=== PATIENT | female | born 2005 | race Caucasian/White ===

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

== ENCOUNTER 2024-08-09 22:25 | Emergency (ER) | payer BC, SELFPAY ==
--- OUTSIDE RECORDS SUMMARY | 2024-08-09 22:27 | XMS_ITS | Referral Summary ---
Author Organization [facility] [employer] Address [address] [place] [address] Care Team Providers Care Ship[employer] Electronic War[employer] Officer Name Role Phone Gwen Sofia MD Primary Care Provider [phone] Source Comments [facility] [employer]non-owned Affiliates and Associated Physician Practices is amultiple site organization consisting of ambulatory clinics and hospital sitesin [place], [place], [place] and [place]. This disclosure is being madepursuant to the Care Everywhere program and may not contain all information available regarding this patient. Last updated 18.[facility] [employer] Allergies No known active allergies Medications * Be aware that medications may not be up to date on this document. Alwaysverify current medications with the patient. Medication Sig Dispensed Refills Start Date End Date Status Methylphenidate HCl (METHYLPHENIDATE CR) 36 MG tablet Take 1 tablet by mouth once daily 11/07/2018 Active ibuprofen (MOTRIN) 600 MG tablet Take 1 (one) tablet by mouth every 8 hours as needed for Pain 20 tablet 03/06/2021 Active acetaminophen (TYLENOL) 325 MG tablet Take 2 (two) tablets by mouth every 6 hours as needed for Fever or Pain Maximum allowable Acetaminophen amount = 4 Grams (4000 mg) / 24 hours. 20 tablet 03/06/2021 Active Active Problems Problem Noted Date Diagnosed Date Vocal cord dysfunction 08/06/2019 Assessment & Plan (08/06/2019 1:56 PM [facility]): Assessment: Symptoms likely represent vocal cord dysfunction. The normal chest exam, normal PFT's, and description of dyspnea makes asthma much less likely. No evidence for underlying airway lesion such as a papilloma or hemangioma. Recommendation: Speech therapy referral for evaluation and training in the techniques of resistive breathing to improve these episodes and to address paradoxic vocal cord motion. I have reviewed the physiology of the larynx as it pertains to VCD, and the paradoxic motion of the vocal cords typical of this entity. If symptoms persist despite speech therapy intervention, would plan to see in follow up for further evaluation; othervwise we can be available on an as needed basis. Other considerations for evaluation might include airway evaluation by flexible bronchoscopy. Administered influenza vaccine today F/U as needed Immunizations Name Administration Dates Next Due INFLUENZA VACCINE, QUADR. (F LUZONE; FLULAVAL; FLUARIX; AFLURIA QUADRIVALENT; 6MO+), 0.5 ML (IIV4) 08/06/2019 Social History Tobacco Use Types Packs/Day Years Used Date Smoking Tobacco: Never Smokeless Tobacco: Never Tobacco Cessation:Counseling Given: No Alcohol Use Standard Drinks/Week Comments Never 0 (1 standard drink = 0.6 oz pur e alcohol) AUDIT-C Answer Date Recorded Q1: How often do you have a drink containing alc ohol? Never 08/19/2021 Average Number of Drinks Not on file 022 Q3: How often do you have si x or more drinks on one occasion? Never 08/19/2021 PHQ-2 Answer Date Recorded PHQ2 TOTAL SCORE 6 08/19/2021 Sex and Gender Information Value Date Recorded Sex Assigned at Not on file Gender Identity Not on file Sexual Orientation Not on file Last Filed Vital Signs Vital Sign Reading Time Taken Comments Blood Pressure 90/60 08/21/2021 8:40 AM [facility] Pulse 84 08/21/2021 8:40 AM [facility] Temperature 36.7 C (98 F) 08/21/2021 8:40 AM [facility] Respiratory Rate 18 08/21/2021 8:40 AM [facility] Oxygen Saturation 99% 08/21/2021 8:40 AM [facility] Inhaled Oxygen Concentration - - Weight 48.6 kg (107 lb 2.3 oz) 08/18/2021 8:29 P M [facility] Height 149.9 cm (4' 11 ) 08/18/2021 8:29 PM [facility] Body Mass Index 21.64 08/18/2021 8:29 PM [facility] Plan of Treatment Not on file Procedures Procedure Name Priority Date/Time Associated Diagnosis Comments CHLAMYDIA + GC AMPLIFIED PROBE STAT 10/17/2017 4:10 AM CDT from Last 3 Months or Most Recently Relevant to Health Maintenance Results * CHLAMYDIA + GC AMPLIFIED PROBE (10/17/2017 4:10 AM CDT) Chlamydia Amplified Probe Negative Negative 10/18/2017 9:06 AM CDT [facility] GC Amplified Probe Negative Negative 10/18/2017 9:06 AM CDT [facility] Microbiology URINE / Unknown Collection / Unknown 10/17/2017 4:10 AM CDT 10/17/2017 4:15 AM CDT Narrative [facility] - 10/18/2017 9:06 AM CDT This test was developed and its performance characteristics determined by the [facility], [facility]. Female urine specimens tested by the [facility] have not been cleared or approved by the U.S. Food and Drug Administration (FDA). The laboratory is regulated under the Clinical Laboratory Improvement Amendments (CLIA) as qualified to perform high-complexity testing. This test is used for clinical purposes. It should not be regarded as investigational or for research. Results based on detection/no detection of ribosomal RNA by amplified method. Syed Win MD LAB - MICROBIOLOGY O RDERABLES [facility] [address] [place] [address] [phone] from Last 3 Months or Most Recently Relevant to Health Maintenance Care Teams [employer] Electronic [employer] Relationship Specialty Start Date End Date Gwen Sofia MD [address] [place] [address] PCP - General Pediatrics 10/17/17
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
--- OUTSIDE RECORDS SUMMARY | 2024-08-09 22:27 | XMS_ITS | Clinical Summary ---
Author Organization [facility] Address [address] [place] [address] Care Team Providers Care Collections Curator Name Role Phone Gwen Sofia MD Primary Care Provider [phone] Source Comments [facility],non-owned Affiliates and Associated Physician Practices is amultiple site organization consisting of ambulatory clinics and hospital sitesin [place], [place], [place] and [place]. This disclosure is being madepursuant to the Care Everywhere program and may not contain all information available regarding this patient. Last updated 18.[facility] Allergies No known active allergies Medications * [...] 08/06/2019 Assessment & Plan (08/06/2019 1:56 PM ROTARY DRILLER): Assessment: Symptoms likely represent vocal cord dysfunction. [...] AFLURIA QUADRIVALENT; 6MO+), 0.5 ML (IIV4) 08/06/2019 Family History Medical History Relation Name Comments Eczema Brother 1 Eczema Brother 2 Asthma Neg Hx Relation Name Status Comments Brother 1 Brother 2 Social History Tobacco Use Types Packs/Day Years [...] Comments Blood Pressure 90/60 08/21/2021 8:40 AM ROTARY DRILLER Pulse 84 08/21/2021 8:40 AM ROTARY DRILLER Temperature 36.7 C (98 F) 08/21/2021 8:40 AM ROTARY DRILLER Respiratory Rate 18 08/21/2021 8:40 AM ROTARY DRILLER Oxygen Saturation 99% 08/21/2021 8:40 AM ROTARY DRILLER Inhaled Oxygen Concentration - - Weight 48.6 kg (107 lb 2.3 oz) 08/18/2021 8:29 P M ROTARY DRILLER Height 149.9 cm (4' 11 ) 08/18/2021 8:29 PM ROTARY DRILLER Body Mass Index 21.64 08/18/2021 8:29 PM ROTARY DRILLER Plan of Treatment Health Maintenance Due Date Last Done Comments HIV SCREENING 11/19/2018 HPV VACCINE (1 - 3-dose series) 11/19/2018 CHLAMYDIA/GONORRHEA SCREENING 2019 10/17/2017 MENINGOCOCCAL (Group B) VACCINE (1 of 2 - Standard) 2019 HEPATITIS C SCREENING 11/15/2021 DTAP/TDAP/TD VACCINES (1 - Tdap) 11/19/2022 HEPATITIS B VACCINE (1 of 3 - 19+ 3-dose series) 11/19/2022 COVID-19 VACCINE (1 - season) 2024 INFLUENZA VACCINE (#1) 2024 0, 03/30/2016, 04/08/2014, Additional history exists DEPRESSION SCREENING 06/27/2024 ZOSTER VACCINE (1 of 2) 11/19/2053 HIB VACCINE Aged Out No longer eligi ble based on patient's age to complete this topic MENINGOCOCCAL VACCINE Aged Out No genie mague eligible based on patient's age to complete this topic PNEUMOCOCCAL VACCINE Aged Out No long er eligible based on patient's age to complete this topic Procedures Procedure Name Priority Date/Time Associated Diagnosis Comments CHLAMYDIA + GC AMPLIFIED PROBE STAT 10/17/2017 4:10 AM CDT from Last 3 Months or Most Recently Relevant to Health Maintenance Results * CHLAMYDIA + GC AMPLIFIED PROBE (10/17/2017 4:10 AM CDT) Chlamydia Amplified Probe Negative Negative 10/18/2017 9:06 AM CDT [facility] GC Amplified Probe Negative Negative 10/18/2017 9:06 AM CDT [facility] Microbiology URINE / Unknown Collection / Unknown 10/17/2017 4:10 AM CDT 10/17/2017 4:15 AM CDT Narrative [facility] - 10/18/2017 9:06 AM CDT This test was developed and its performance characteristics determined by the [facility], [facility]. Female urine specimens tested by the [facility] [place] have not been cleared or approved by [...] Win MD LAB - MICROBIOLOGY O RDERABLES [facility] [address] [place] [address], [facility] [phone] from Last 3 Months or Most Recently Relevant to Health Maintenance Care Teams Collections Curator Relationship Specialty Start Date End Date Gwen Sofia MD [address] [place] [address] [place] [id number] PCP - General Pediatrics 10/17/17
--- OUTSIDE RECORDS SUMMARY | 2024-08-09 22:28 | XMS_ITS | Clinical Summary ---
Author Organization [facility] Address [address] [place] [address] Care Team Providers Care Geographic Information Systems Engineer Name Role Phone None, Provider MD Primary Care Provider Unavaila ble Allergies No known active allergies Medications HYDROcodone-acetami nophen (NORCO) 5-325 MG tabletIndications:A cute Pain < 3 Day Supply Take 1 tablet by mouth every 4 (four) hours. Indications : Acute Pain < 3 Day Supply 12 tablet 4 Active ondansetron (ZOFRAN-ODT) 4 MG disintegrating tablet Take 1 tablet (4 mg total) by mouth every 8 (eight) hours as needed. 15 tablet 5 Active cephALEXin (KEFLEX) 500 MG capsule Take 1 capsule (500 mg total) by mouth 2 (two) times daily for 7 days. 14 capsule 5 07/11/19 25 Encounters Date Type Department Care Team Description 07/04/2024 1:21 PM INDUSTRIAL HYGENIST - 07/04/2024 6:06 PM [facility] Emergency [facility] Emergency [place] [address] Liv Palomo PA Abdominal Pain Discharge Disposition: Home or Self Care (Routine Discharge) 07/04/2024 Travel from Last 3 Months Social History Tobacco Use Types Packs/Day Years Used Date Smoking Tobacco: Never Smokeless Tobacco: Never Tobacco Cessation:Counseling Given: Not Answered Alcohol Use Standard Drinks/Week Comments Never 0 (1 standard drink = 0.6 oz pur e alcohol) Comments Yes Sex and Gender Information Value Date Recorded Sex Assigned at Not on file Legal Sex Female 3:11 PM CDT Gender Identity Not on file Sexual Orientation Not on file Last Filed Vital Signs Vital Sign Reading Time Taken Comments Blood Pressure 105/66 07/04/2024 5:42 PM INDUSTRIAL HYGENIST Pulse 108 07/04/2024 5:42 PM INDUSTRIAL HYGENIST Temperature 36.7 C (98 F) 07/04/2024 12:59 PM INDUSTRIAL HYGENIST Respiratory Rate 16 07/04/2024 5:42 PM INDUSTRIAL HYGENIST Oxygen Saturation 97% 07/04/2024 5:42 PM INDUSTRIAL HYGENIST Inhaled Oxygen Concentration - - Weight 52.2 kg (115 lb) 07/04/2024 12:59 PM INDUSTRIAL HYGENIST Height 149.9 cm (4' 11 ) 07/04/2024 12:59 PM INDUSTRIAL HYGENIST Body Mass Index 23.23 07/04/2024 12:59 PM INDUSTRIAL HYGENIST Plan of Treatment Health Maintenance Due Date Last Done Comments Annual Physical 11/19/2006 HPV Vaccines (2 - 2-dose series) 07/07/2017 01/04/2017 Meningococcal B Vaccine (1 of 2 - Standard) 2019 Hepatitis C 11/19/2021 COVID-19 Vaccine ( - season) 2024 Influenza Adult (#1) 2024 08/06/2019, 03/30/2016, 04/08/2014, Additional history exists DTaP, Tdap and Td Vaccines (7 - Td or Tdap) 03/30/2026 03/30/2016, 02/06/2009, 05/27/2005, Additional history exists RSV Immunization or 60+ Years (1 - 1-dose 75+ series) 11/19/2078 Hepatitis B Vaccines Completed 09/07/2004, 06/08/2004, 03/25/2004, Additional history exists Pneumococcal Vaccine: Pediatrics (0 to 5 Years) and At-Risk Patients (6 to 64 Years) Aged Out 03/03/2005, 09/07/2004, 06/08/2004, Additional history exists No longer eligible based on patient's age to complete this topic Meningococcal Vaccine Completed 04/07/2022, 016 RSV Immunizations Under 20 Months Aged Out No longer eligible based on patient's age to complete this topic Procedures Procedure Name Priority Date/Time Associated Diagnosis Comments US OB TRANSVAG STAT 07/04/2024 4:46 PM INDUSTRIAL HYGENIST URINE BACTERIA CULTURE Routine 1:38 PM INDUSTRIAL HYGENIST INFLUENZA A & B STAT 07/04/2024 1:38 PM INDUSTRIAL HYGENIST CORONAVIRUS (COVID 19) STAT 1:38 PM INDUSTRIAL HYGENIST HC URINALYSIS AUTO W/O MICRO STAT 07/04/2024 1:38 PM INDUSTRIAL HYGENIST POCT URINE (BACK OFFICE) STAT 07/04/2024 1:37 PM INDUSTRIAL HYGENIST HCG QUANT (SERUM)-CHORIONIC GONADOTROPIN STAT 07/04/2024 1:34 PM INDUSTRIAL HYGENIST COMPREHENSIVE METABOLIC PANEL STAT 07/04/2024 1:34 PM INDUSTRIAL HYGENIST CBC W/DIFF AUTOMATED STAT 07/04/2024 1:34 PM INDUSTRIAL HYGENIST HC BLOOD TYPING ABO STAT 07/04/2024 1 :31 PM INDUSTRIAL HYGENIST from Last 3 Months Results * US OB TRANSVAG (07/04/2024 4:46 PM INDUSTRIAL HYGENIST) Anatomical Region Laterality Modality Abdomen, Pelvis Ultrasound 07/04/2024 5:21 PM INDUSTRIAL HYGENIST Impressions 07/04/2024 5:32 PM INDUSTRIAL HYGENIST IMPRESSION: SINGLE EARLY LIVE INTRAUTERINE WITH AN ESTIMATED GESTATIONAL AGE OF 6 WEEKS 0 DAYS, WITH CORRESPONDING ESTIMATED DELIVERY DATE OF 02/27/2025. SMALL SUBCHORIONIC HEMATOMA. COUPLE OF SMALL CYSTIC APPEARING STRUCTURES IN THE CUL-DE-SAC WITH NO ASSOCIATED HYPERVASCULARITY OR INTERNAL CONTENT. THESE ARE OF DOUBTFUL SIGNIFICANCE. Referred By: Interpreted By: Russell Chen MD, 07/04/2024 5:21 PM Narrative 07/04/2024 5:32 PM INDUSTRIAL HYGENIST [facility] [address] [place] [id number] EXAM: US OB TRANSVAG INDICATION: Abdominal pain with vomiting, vaginal bleeding and positive test. TECHNIQUE: Transvaginal ultrasound pelvis was performed. COMPARISON EXAM: None FINDINGS: There is an intrauterine with heart rate of 106 bpm. Estimated gestational age based on crown-rump length measurement is 6 weeks 0 days, with an estimated delivery date of 02/27/2025. This is in relative agreement with maternal dating in which the estimated delivery date is 02/21/2025. Normal-appearing yolk sac. There is a small crescentic subchorionic collection, measuring 4 x 7 x 11 mm. No abnormal free fluid in the cul-de-sac or either adnexa. There are couple of small cystic structures in the low cul-de-sac posterior to the cervix and lower uterine segment, measuring 7 x 5 x 7 mm and 14 x 6 x 12 mm, respectively. These are of uncertain but unlikely significance. No increased associated vascularity or internal content. There is no ovarian torsion or adnexal mass or fluid. Ovaries contain small follicles. Right ovary measures 2.9 x 2.4 x 2.2 cm. The left ovary measured 2.8 x 1.0 x 1.0 cm. Procedure Note Russell Chen MD - 07/04/2024 [facility] [address] [place], [place] [address] EXAM: US OB TRANSVAG INDICATION: Abdominal pain with vomiting, vaginal bleeding and positivepregnancy test. TECHNIQUE: Transvaginal ultrasound pelvis was performed. COMPARISON EXAM: None FINDINGS: There is an intrauterine with heart rate of 106 bpm.Estimated gestational age based on crown-rump length measurement is 6weeks 0 days, with an estimated delivery date of 02/27/2025. This is inrelative agreement with maternal dating in which the estimated deliverydate is 02/21/2025. Normal-appearing yolk sac. There is a smallcrescentic subchorionic collection, measuring 4 x 7 x 11 mm. No abnormalfree fluid in the cul-de-sac or either adnexa. There are couple of smallcystic structures in the low cul-de-sac posterior to the cervix and loweruterine segment, measuring 7 x 5 x 7 mm and 14 x 6 x 12 mm, respectively.These are of uncertain but unlikely significance. No increased associatedvascularity or internal content. There is no ovarian torsion or adnexalmass or fluid. Ovaries contain small follicles. Right ovary measures 2.9x 2.4 x 2.2 cm. The left ovary measured 2.8 x 1.0 x 1.0 cm. IMPRESSION: SINGLE EARLY LIVE INTRAUTERINE WITH AN ESTIMATEDGESTATIONAL AGE OF 6 WEEKS 0 DAYS, WITH CORRESPONDING ESTIMATED DELIVERYDATE OF 02/27/2025. SMALL SUBCHORIONIC HEMATOMA. COUPLE OF SMALL CYSTIC APPEARING STRUCTURES IN THE CUL-DE-SAC WITH NOASSOCIATED HYPERVASCULARITY OR INTERNAL CONTENT. THESE ARE OF DOUBTFULSIGNIFICANCE. Referred By: Interpreted By: Russell Cehn MD, 07/04/2024 5:21 PM Liv RUSSELL ULTRASOUND Final Result * CORONAVIRUS (COVID 19) (07/04/2024 1:38 PM INDUSTRIAL HYGENIST) CORONAVIRUS SARS COV 2 RNA NEGATIVE NEGATIVE 07/04/2024 2:23 PM INDUSTRIAL HYGENIST [facility] Comment: NEGATIVE RESULTS DO NOT RULE OUT COVID 19 AND SHOULD NOT BE USED THE SOLE BASIS FOR TREATMENT OR PATIENT MANAGEMENT DECISIONS, INCLUDING INFECTION CONTROL DECISIONS. NEGATIVE RESULTS SHOULD BE CONSIDERED IN THE CONTEXT OF A PATIENT'S RECENT EXPOSURES, HISTORY AND THE PRESENCE OF CLINICAL SIGNS AND SYMPTOMS CONSISTENT WITH COVID 19. THE ID NOW COVID-19 2.0 TEST HAS BEEN AUTHORIZED BY THE FDA UNDER EAU FOR USE BY AUTHORIZED LABORATORIES. PERFORMED BY NUCLEIC ACID AMPLIFICATION FOR MOLECULAR QUALITATIVE DETECTION OF SARS-COV-2. SPECIMEN TYPE NASAL 07/04/2024 1:38 PM INDUSTRIAL HYGENIST [facility] NASAL STRUCTURE / Unknown 07/04/2024 1:38 PM INDUSTRIAL HYGENIST Liv RUSSELL MICROBIOLOGY - GENERAL ORDERAB LES Final Result [facility] [address] [place] [address], [place] [phone] * INFLUENZA A & B (07/04/2024 1:38 PM INDUSTRIAL HYGENIST) SPECIMEN TYPE NASAL 07/04/2024 1:55 PM INDUSTRIAL HYGENIST [facility] INFLUENZA A NEGATIVE NEGATIVE 07/04/2024 2:23 PM INDUSTRIAL HYGENIST [facility] INFLUENZA B NEGATIVE NEGATIVE 07/04/2024 2:23 PM INDUSTRIAL HYGENIST [facility] Comment: Interpretation: Negative for Influenza A and B. A negative result does not exclude influenza virus infection. If influenza is circulating in your community, a diagnosis of influenza should be considered based on a patient's clinical presentation and empiric antiviral treatment should be considered, if indicated. If more conclusive testing is needed for hospitalized inpatients, follow-up confirmatory testing with RT-PCR requires a separate order. NASAL STRUCTURE / Unknown 07/04/2024 1:38 PM INDUSTRIAL HYGENIST Liv RUSSELL MICROBIOLOGY - GENERAL ORDERAB LES Final Result [facility] [address] [place] [id number], [place] [phone] * (ABNORMAL) URINALYSIS (07/04/2024 1:38 PM INDUSTRIAL HYGENIST) SPECIMEN TYPE URINE CLEAN CATCH 07/04/2024 1:38 PM INDUSTRIAL HYGENIST [facility] COLOR (U) YELLOW 07/04/2024 3:08 PM INDUSTRIAL HYGENIST [facility] TRANSPARENCY TURBID 07/04/2024 3:08 PM INDUSTRIAL HYGENIST [facility] SPECIFIC GRAVITY (U) 1.026 1.001 - 1.030 07/04/2024 3:08 PM INDUSTRIAL HYGENIST [facility] U PH 8.0 5.0 - 9.0 07/04/2024 3:08 PM INDUSTRIAL HYGENIST [facility] LEUKOCYTES (U) NEGATIVE NEGATIVE 07/04/2024 3:08 PM INDUSTRIAL HYGENIST [facility] NITRITES 2+(A) NEGATIVE 07/04/2024 3:08 PM [facility] PROTEIN RANDOM (U) 30(H) <30 MG/DL 07/04/2024 3:08 PM INDUSTRIAL HYGENIST [facility] GLUCOSE (U) NORMAL NORMAL MG/DL 07/04/2024 3:08 PM [facility] KETONES MG/DL (U) 150(A) NEGATIVE MG/DL 07/04/2024 3:08 PM [facility] UROBILINOGEN NORMAL NORMAL MG/DL 07/04/2024 3:08 PM [facility] BILIRUBIN (U) NEGATIVE NEGATIVE MG/DL 07/04/2024 3:08 PM INDUSTRIAL HYGENIST [facility] BLOOD (U) NEGATIVE NEGATIVE 07/04/2024 3:08 PM INDUSTRIAL HYGENIST [facility] MUCUS MANY /LPF 07/04/2024 3:08 PM [facility] WBC/HPF 2 <6 /HPF 07/04/2024 3:08 PM INDUSTRIAL HYGENIST [facility] RBC/HPF 6(H) <6 /HPF 07/04/2024 3:08 PM INDUSTRIAL HYGENIST [facility] SQUAMOUS EPITHELIALS FEW /HPF 07/04/2024 3:08 PM INDUSTRIAL HYGENIST [facility] URINE SPECIMEN OBTAINED BY CLEAN CATCH PROCEDURE / Unknown 07/04/2024 1:38 PM INDUSTRIAL HYGENIST us Liv RUSSELL URINE ORDERABLES Final Result [facility] [address] [place] [address], [place] [phone] * (ABNORMAL) CULTURE URINE (07/04/2024 1:38 PM INDUSTRIAL HYGENIST) SPEC DESCRIPTION URINE CLEAN CATCH 07/04/2024 3:24 PM INDUSTRIAL HYGENIST [facility] SPECIAL REQUESTS NO SPECIAL REQUEST 07/04/2024 3:24 PM INDUSTRIAL HYGENIST [facility] CULTURE RESULT >100,000 COL/ML ESCHERICHIA COLI (A) 07/06/2024 7:53 AM INDUSTRIAL HYGENIST [facility] URINE SPECIMEN OBTAINED BY CLEAN CATCH PROCEDURE / Unknown 07/04/2024 1:38 PM INDUSTRIAL HYGENIST 07/04/2024 5:51 PM INDUSTRIAL HYGENIST Narrative Organism Antibiotic Method Susceptibility Escherichia coli AMPICILLIN EMA (VITEK) <=2: Sensitive Escherichia coli AMPICILLIN/SULBACTAM EMA (VITEK) <=2: Sensitive Escherichia coli CEFTRIAXONE EMA (VITEK) <=1: Sensitive Escherichia coli CEFTAZIDIME EMA (VITEK) <=1: Sensitive Escherichia coli CEFAZOLIN EMA (VITEK) <=4: Sensitive Escherichia coli ESBL EMA (VITEK) NEG: Sensitive Escherichia coli NITROFURANTOIN EMA (VITEK) 32: Sensitive Escherichia coli GENTAMICIN EMA (VITEK) <=1: Sensitive Escherichia coli LEVOFLOXACIN EMA (VITEK) 1: Sensitive Escherichia coli PIPRACIL/TAZO EMA (VITEK) <=4: Sensitive Escherichia coli TRIMETH-SULFAMETH. EMA (VITEK) <=20: Sensitive us Liv RUSSELL MICROBIOLOGY - GENERAL ORDERAB LES Final Result [facility] [address] [place] [address], [place] [phone] * (ABNORMAL) POCT urine (07/04/2024 1:37 PM INDUSTRIAL HYGENIST) URINE HCG TEST POSITIVE(A ) Internal Control: VALID us Liv RUSSELL POINT OF CARE TEST ORDERABLES Final Result * (ABNORMAL) COMPREHENSIVE METABOLIC PANEL (07/04/2024 1:34 PM [facility]) [facility] GLUCOSE 99 70 - 99 MG/DL 07/04/2024 2:22 PM [facility] BUN 7 7 - 18 MG/DL 07/04/2024 2:22 PM [facility] CREATININE S/P/B 0.62 0.55 - 1.02 MG/DL 07/04/2024 2:22 PM [facility] SODIUM S/P/B 134(L) 136 - 145 MMOL/L 07/04/2024 2:22 PM [facility] POTASSIUM S/P/B 3.2(L) 3.5 - 5.1 MMOL/L 07/04/2024 2:22 PM [facility] CHLORIDE S/P/B 103 97 - 115 MMOL/L 07/04/2024 2:22 PM [facility] CO2 26.0 21 - 32 MMOL/L 07/04/2024 2:22 PM [facility] CALCIUM S/P/B 9.4 8.5 - 10.1 MG/DL 07/04/2024 2:22 PM [facility] BILIRUBIN TOTAL S/P/B 0.6 0.2 - 1.2 MG/DL 07/04/2024 2:22 PM [facility] Comment: THIS ASSAY IS NOT RECOMMENDED FOR PATIENTS UNDERGOING TREATMENT WITH ELTROMBOPAG DUE TO THE POTENTIAL FOR FALSELY ELEVATED RESULTS. TOTAL PROTEIN S/P/B 8.1 6.4 - 8.2 G/DL 07/04/2024 2:22 PM [facility] ALBUMIN S/P/B 3.9 3.4 - 5.0 G/DL 07/04/2024 2:22 PM [facility] AST 11(L) 15 - 37 U/L 07/04/2024 2:22 PM INDUSTRIAL HYGENIST [facility] ALT 17 14 - 55 U/L 07/04/2024 2:22 PM [facility] ALKALINE PHOSPHATASE S/P/B 71 50 - 136 U/L 07/04/2024 2:22 PM [facility] ANION GAP 5.0 2 - 10 MMOL/L 07/04/2024 2:22 PM [facility] BUN CREATININE RATIO 11.3 6 - 26 07/04/2024 2:22 PM [facility] A/G RATIO 0.9(L) 1.0 - 2.0 RATIO 07/04/2024 2:22 PM [facility] GFR ESTIMATE >90 >90 ML/MIN/1.7 3 M2 07/04/2024 2:22 PM [facility] Comment: NOTE: eGFR is not calculated for patients <18 years of age or gender unknown. This is an estimated GFR calculation using the new CKD EPI creatinine equation without race and so does not require a correction factor for race. This estimated GFR should not be used for calculating drug doses. 07/04/2024 1:34 PM INDUSTRIAL HYGENIST Liv RUSSELL LABORATORY Final Result [facility] [address] [place] [address], * Quantitative HCG (07/04/2024 1:34 PM INDUSTRIAL HYGENIST) Pathologist [facility] HCG QUANTITATIVE 38,727 MIU/ML 07/04/19 2:52 PM [facility] Comment: WEEKS OF REFERENCE RANGES Non- female < or = 2 0.2 - 1 5 - 50 1 - 2 50 - 500 2 - 3 100 - 5000 3 - 4 500 - 10,000 4 - 5 1000 - 50,000 5 - 6 10,000 - 100,000 6 - 8 15,000 - 200,000 2 - 3 MONTHS 10,000 - 100,000 07/04/2024 1:34 PM INDUSTRIAL HYGENIST us Liv RUSSELL LABORATORY Final Result [facility] [address] [place] [address], * (ABNORMAL) CBC W/DIFF AUTOMATED (07/04/2024 1:34 PM INDUSTRIAL HYGENIST) Pathologist [facility] WBC 9.68 4.5 - 13.0 x10'3/uL 07/04/2024 2:05 PM INDUSTRIAL HYGENIST [facility] RBC 4.41 4.20 - 5.40 x10'6/uL 07/04/2024 2:05 PM INDUSTRIAL HYGENIST [facility] HGB 13.5 12.0 - 16.0 G/DL 07/04/2024 2:05 PM INDUSTRIAL HYGENIST [facility] HCT 39.3 38.0 - 48.0 % 07/04/2024 2:05 PM INDUSTRIAL HYGENIST [facility] MCV 89.1 81.0 - 99.0 FL 07/04/2024 2:05 PM INDUSTRIAL HYGENIST [facility] MCH 30.6 27.0 - 31.0 PG 07/04/2024 2:05 PM INDUSTRIAL HYGENIST [facility] MCHC 34.4 32.0 - 36.0 G/DL 07/04/2024 2:05 PM INDUSTRIAL HYGENIST [facility] RDW 13.8 11.5 - 14.5 % 07/04/2024 2:05 PM INDUSTRIAL HYGENIST [facility] PLT 269 130 - 400 x10'3/uL 07/04/2024 2:05 PM [facility] MPV 10.1 9.3 - 12.2 FL 07/04/2024 2:05 PM [facility] DIFFERENTIAL TYPE AUTOMATED DIFFERENTIAL 07/04/2024 2:05 PM [facility] NEUTROPHILS % 73.8 % 07/04/2024 2:05 PM [facility] LYMPHOCYTES % 21.6 % 07/04/2024 2:05 PM [facility] MONOCYTES % 4.1 % 07/04/2024 2:05 PM [facility] EOSINOPHILS 0.0 % 07/04/2024 2:05 PM [facility] BASOPHILS 0.1 % 07/04/2024 2:05 PM [facility] IMMATURE GRANS % 0.4 % 07/04/19 25 2:05 PM [facility] ABS. NEUTROPHILS 7.14 1.80 - 8.00 x10'3/uL 07/04/2024 2:05 PM [facility] ABS. LYMPHOCYTES 2.09 1.20 - 5.20 x10'3/uL 07/04/2024 2:05 PM [facility] ABS. MONOCYTES 0.40 0.24 - 0.86 x10'3/uL 07/04/2024 2:05 PM [facility] ABS. EOSINOPHILS 0.00(L) 0.04 - 0.36 x10'3/uL 07/04/2024 2:05 PM [facility] ABS. BASOPHILS 0.01 0.01 - 0.08 x10'3/uL 07/04/2024 2:05 PM [facility] ABS. IMMATURE GRANULOCYTES 0.04 0.00 - 0.49 x10'3/uL 07/04/2024 2:05 PM [facility] 07/04/2024 1:34 PM INDUSTRIAL HYGENIST Liv RUSSELL LABORATORY Final Result [facility] [address] [place] [address], [place] [phone] * BLOOD TYPING, ABO AND RH (07/04/2024 1:31 PM INDUSTRIAL HYGENIST) ABO/RH A POSITIVE 07/04/2024 2:55 PM INDUSTRIAL HYGENIST [facility] 07/04/2024 1:31 PM INDUSTRIAL HYGENIST Liv RUSSELL BLOOD BANK TEST ORDERABLES Fin al Result Performing Organization Address City/[facility]/ZIP Co de Phone Number [address] [address], [place] [phone] from Last 3 Months Care Teams Geographic Information Systems Engineer Relationship Specialty Start Date End Date None, Provider, PCP - General UNKNOWN PHYSICIAN SPECIALTY 04/12/24
[2024-08-09 22:29] VITALS: BP 124/66; PULSE 103; RESP 19; TEMP 36.5; O2SAT 100
[2024-08-10 01:26] LABS: BEDSIDEPREGUCG Positive (Negative)
[2024-08-10 01:28] LABS: Basophils Percent Auto 0.2 % (0.2-1.2); Eosinophils Percent Auto 0.4 % (0-4.4); Hematocrit 35.4 % (37.0-47.0); Hemoglobin 12.3 g/dL (12.0-15.0); Immature Granulocyte Absolute 0.03 K/mm3 (0.00-0.031); Immature Granulocyte Percent A 0.3 % (0-0.5); Lymphocytes Absolute Auto 1.76 K/mm3 (0.9-3.2); Lymphocytes Percent Auto 18.9 % (18.3-44.2); Mean Corpuscular HGB Conc 34.7 g/dl (32-36); Mean Corpuscular Hemoglobin 31.1 pg (26-34); Mean Corpuscular Volume 89.6 fl (80-100); Monocytes Absolute Auto 0.8 K/mm3 (0.1-0.6); Monocytes Percent Auto 8.3 % (2.6-8.5); Neutrophils Absolute Auto 6.7 K/mm3 (1.3-6.7); Neutrophils Percent Auto 71.9 % (45.5-73.1); Platelet Count Result 208 k/mm3 (150-375); Red Blood Count 3.95 M/mm3 (4.2-5.4); Red Cell Distribution Width 13.2 % (11.5-14.5); White Blood Count 9.3 K/mm3 (4.5-10.0)
[2024-08-10 01:38] LABS: Alanine Aminotransferase 12 U/L (6-35); Albumin Level 3.9 g/dL (3.5-5.1); Alkaline Phosphatase 52 U/L (38-126); Anion Gap 11 mmol/L (4-12); Aspartate Amino Transferase 20 U/L (14-36); Bilirubin,Total 0.4 mg/dL (0.2-1.3); Blood Urea Nitrogen 5 mg/dL (7-17); Calcium 9.4 mg/dL (8.4-10.2); Carbon Dioxide 22 mmol/L (22-30); Chloride 103 mmol/L (98-107); Estimated Glomerular Filt Rate > 60; Glucose 100 mg/dL (65-110); Lipase 99 U/L (23-300); Potassium 3.8 mmol/L (3.4-5.0); Sodium 136 mmol/L (137-145)
[2024-08-10 01:47] LABS: Add Urine Microscopic? YES; Appearance Urine Turbid (Clear); Bacteria Urine 4+ /hpf; Bilirubin Urine Negative (Negative); Blood Urine 2+ (Negative); Budding Yeast Urine Present /hpf; Color Urine Yellow (Yellow); Glucose Urine UA Negative (Negative); Ketones Urine Negative (Negative); Leukocyte Esterase Ur 1+ LEU/UL (Negative); Need Manual Microscopic Reviewed; Nitrate Urine Negative (Negative); Protein Urine 3+ mg/dL (Negative); Specific Grav Ur 1.013 (1.001-1.035); Squamous Epithelial Cell Urine Moderate /hpf (Few); Urobilinogen Urine 0.2 mg/dL (<2.0); WBC Urine >100 /hpf (0-3)
--- OUTSIDE RECORDS SUMMARY | 2024-08-10 02:42 | XMS_ITS | Referral Summary ---
Author Organization [facility] Address [address] [place] [address] Care Team Providers Care Nuclear Auxiliary Operator Name Role Phone Gwen Sofia MD Primary Care Provider Source Comments [facility],non-owned Affiliates and Associated Physician Practices is amultiple site organization consisting of ambulatory clinics and hospital sitesin [place], [place]. This disclosure is being madepursuant to the Care Everywhere program and may not contain all information available regarding this patient. Last updated 18.[facility] Allergies No known active allergies Medications * [...] 08/06/2019 Assessment & Plan (08/06/2019 1:56 PM ASSISTANT ACCOUNT MANAGER): Assessment: Symptoms likely represent vocal cord dysfunction. [...] Comments Blood Pressure 90/60 08/21/2021 8:40 AM ASSISTANT ACCOUNT MANAGER Pulse 84 08/21/2021 8:40 AM ASSISTANT ACCOUNT MANAGER Temperature 36.7 C (98 F) 08/21/2021 8:40 AM ASSISTANT ACCOUNT MANAGER Respiratory Rate 18 08/21/2021 8:40 AM ASSISTANT ACCOUNT MANAGER Oxygen Saturation 99% 08/21/2021 8:40 AM ASSISTANT ACCOUNT MANAGER Inhaled Oxygen Concentration - - Weight 48.6 kg (107 lb 2.3 oz) 08/18/2021 8:29 P M ASSISTANT ACCOUNT MANAGER Height 149.9 cm (4' 11 ) 08/18/2021 8:29 PM ASSISTANT ACCOUNT MANAGER Body Mass Index 21.64 08/18/2021 8:29 PM ASSISTANT ACCOUNT MANAGER Plan of Treatment Not on file Procedures Procedure Name Priority Date/Time Associated Diagnosis Comments CHLAMYDIA + GC AMPLIFIED PROBE STAT 10/17/2017 4:10 AM CDT from Last 3 Months or Most Recently Relevant to Health Maintenance Results * CHLAMYDIA + GC AMPLIFIED PROBE (10/17/2017 4:10 AM CDT) Chlamydia Amplified Probe Negative Negative 10/18/2017 9:06 AM CDT [facility] GC Amplified Probe Negative Negative 10/18/2017 9:06 AM CDT [facility] Microbiology URINE / Unknown Collection / Unknown 10/17/2017 4:10 AM CDT 10/17/2017 4:15 AM CDT Narrative [facility] - 10/18/2017 9:06 AM CDT This test was developed and its performance characteristics determined by the [facility], [facility]. Female urine specimens tested by the [facility] [place] have not been cleared or approved by [...] Win MD LAB - MICROBIOLOGY O RDERABLES [facility] [address] [place] [address] [phone] from Last 3 Months or Most Recently Relevant to Health Maintenance Care Teams Nuclear Auxiliary Operator Relationship Specialty Start Date End Date Gwen Sofia MD [address] [place] [address] PCP - General Pediatrics 10/17/17
--- OUTSIDE RECORDS SUMMARY | 2024-08-10 02:42 | XMS_ITS | Clinical Summary ---
Author Organization [facility] Address [address] [place] [address] Care Team Providers Care Oil Field Tester Name Role Phone None, Provider MD Primary [...] Department Care Team Description 07/04/2024 1:21 PM PROFESSIONAL SYSTEM ADMINISTRATOR - 07/04/2024 6:06 PM [facility] Emergency [facility] [place] [address] Liv Palomo PA Abdominal Pain Discharge Disposition: [...] Comments Blood Pressure 105/66 07/04/2024 5:42 PM PROFESSIONAL SYSTEM ADMINISTRATOR Pulse 108 07/04/2024 5:42 PM PROFESSIONAL SYSTEM ADMINISTRATOR Temperature 36.7 C (98 F) 07/04/2024 12:59 PM PROFESSIONAL SYSTEM ADMINISTRATOR Respiratory Rate 16 07/04/2024 5:42 PM PROFESSIONAL SYSTEM ADMINISTRATOR Oxygen Saturation 97% 07/04/2024 5:42 PM PROFESSIONAL SYSTEM ADMINISTRATOR Inhaled Oxygen Concentration - - Weight 52.2 kg (115 lb) 07/04/2024 12:59 PM PROFESSIONAL SYSTEM ADMINISTRATOR Height 149.9 cm (4' 11 ) 07/04/2024 12:59 PM PROFESSIONAL SYSTEM ADMINISTRATOR Body Mass Index 23.23 07/04/2024 12:59 PM PROFESSIONAL SYSTEM ADMINISTRATOR Plan of Treatment Health Maintenance Due Date [...] US OB TRANSVAG STAT 07/04/2024 4:46 PM PROFESSIONAL SYSTEM ADMINISTRATOR URINE BACTERIA CULTURE Routine 1:38 PM PROFESSIONAL SYSTEM ADMINISTRATOR INFLUENZA A & B STAT 07/04/2024 1:38 PM PROFESSIONAL SYSTEM ADMINISTRATOR CORONAVIRUS (COVID 19) STAT 1:38 PM PROFESSIONAL SYSTEM ADMINISTRATOR HC URINALYSIS AUTO W/O MICRO STAT 07/04/2024 1:38 PM PROFESSIONAL SYSTEM ADMINISTRATOR POCT URINE (BACK OFFICE) STAT 07/04/2024 1:37 PM PROFESSIONAL SYSTEM ADMINISTRATOR HCG QUANT (SERUM)-CHORIONIC GONADOTROPIN STAT 07/04/2024 1:34 PM PROFESSIONAL SYSTEM ADMINISTRATOR COMPREHENSIVE METABOLIC PANEL STAT 07/04/2024 1:34 PM PROFESSIONAL SYSTEM ADMINISTRATOR CBC W/DIFF AUTOMATED STAT 07/04/2024 1:34 PM PROFESSIONAL SYSTEM ADMINISTRATOR HC BLOOD TYPING ABO STAT 07/04/2024 1 :31 PM PROFESSIONAL SYSTEM ADMINISTRATOR from Last 3 Months Results * US OB TRANSVAG (07/04/2024 4:46 PM PROFESSIONAL SYSTEM ADMINISTRATOR) Anatomical Region Laterality Modality Abdomen, Pelvis Ultrasound 07/04/2024 5:21 PM PROFESSIONAL SYSTEM ADMINISTRATOR Impressions 07/04/2024 5:32 PM PROFESSIONAL SYSTEM ADMINISTRATOR IMPRESSION: SINGLE EARLY LIVE INTRAUTERINE WITH AN ESTIMATED GESTATIONAL AGE OF 6 WEEKS 0 DAYS, WITH CORRESPONDING ESTIMATED DELIVERY DATE OF 02/27/2025. SMALL SUBCHORIONIC HEMATOMA. COUPLE OF SMALL CYSTIC APPEARING STRUCTURES IN THE CUL-DE-SAC WITH NO ASSOCIATED HYPERVASCULARITY OR INTERNAL CONTENT. THESE ARE OF DOUBTFUL SIGNIFICANCE. Referred By: Interpreted By: Russell Chen MD, 07/04/2024 5:21 PM Narrative 07/04/2024 5:32 PM PROFESSIONAL SYSTEM ADMINISTRATOR [facility] [address] [place] [id number] EXAM: US OB TRANSVAG INDICATION: Abdominal pain [...] Procedure Note Russell Chen MD - 07/04/2024 [facility] [address] [place], [place] [address] EXAM: US OB TRANSVAG INDICATION: Abdominal pain [...] OF DOUBTFULSIGNIFICANCE. Referred By: Interpreted By: Russell Chen MD, 07/04/2024 5:21 PM Liv RUSSELL ULTRASOUND Final Result * CORONAVIRUS (COVID 19) (07/04/2024 1:38 PM PROFESSIONAL SYSTEM ADMINISTRATOR) CORONAVIRUS SARS COV 2 RNA NEGATIVE NEGATIVE 07/04/2024 2:23 PM PROFESSIONAL SYSTEM ADMINISTRATOR [facility] Comment: NEGATIVE RESULTS DO NOT [...] SARS-COV-2. SPECIMEN TYPE NASAL 07/04/2024 1:38 PM PROFESSIONAL SYSTEM ADMINISTRATOR [facility] NASAL STRUCTURE / Unknown 07/04/2024 1:38 PM PROFESSIONAL SYSTEM ADMINISTRATOR Liv RUSSELL MICROBIOLOGY - GENERAL ORDERAB LES Final Result [facility] [address] [place] [address], [place] [phone] * INFLUENZA A & B (07/04/2024 1:38 PM PROFESSIONAL SYSTEM ADMINISTRATOR) SPECIMEN TYPE NASAL 07/04/2024 1:55 PM PROFESSIONAL SYSTEM ADMINISTRATOR [facility] INFLUENZA A NEGATIVE NEGATIVE 07/04/2024 2:23 PM PROFESSIONAL SYSTEM ADMINISTRATOR [facility] INFLUENZA B NEGATIVE NEGATIVE 07/04/2024 2:23 PM PROFESSIONAL SYSTEM ADMINISTRATOR [facility] Comment: Interpretation: Negative for Influenza [...] NASAL STRUCTURE / Unknown 07/04/2024 1:38 PM PROFESSIONAL SYSTEM ADMINISTRATOR Liv RUSSELL MICROBIOLOGY - GENERAL ORDERAB LES Final Result [facility] [address] [place] [address], [place] [phone] * (ABNORMAL) URINALYSIS (07/04/2024 1:38 PM PROFESSIONAL SYSTEM ADMINISTRATOR) SPECIMEN TYPE URINE CLEAN CATCH 07/04/2024 1:38 PM PROFESSIONAL SYSTEM ADMINISTRATOR [facility] COLOR (U) YELLOW 07/04/2024 3:08 PM PROFESSIONAL SYSTEM ADMINISTRATOR [facility] TRANSPARENCY TURBID 07/04/2024 3:08 PM PROFESSIONAL SYSTEM ADMINISTRATOR [facility] SPECIFIC GRAVITY (U) 1.026 1.001 - 1.030 07/04/2024 3:08 PM PROFESSIONAL SYSTEM ADMINISTRATOR [facility] U PH 8.0 5.0 - 9.0 07/04/2024 3:08 PM PROFESSIONAL SYSTEM ADMINISTRATOR [facility] LEUKOCYTES (U) NEGATIVE NEGATIVE 07/04/2024 3:08 PM PROFESSIONAL SYSTEM ADMINISTRATOR [facility] NITRITES 2+(A) NEGATIVE 07/04/2024 3:08 PM [facility] PROTEIN RANDOM (U) 30(H) <30 MG/DL 07/04/2024 3:08 PM PROFESSIONAL SYSTEM ADMINISTRATOR [facility] GLUCOSE (U) NORMAL NORMAL MG/DL 07/04/2024 3:08 PM [facility] KETONES MG/DL (U) 150(A) NEGATIVE MG/DL 07/04/2024 3:08 PM [facility] UROBILINOGEN NORMAL NORMAL MG/DL 07/04/2024 3:08 PM [facility] BILIRUBIN (U) NEGATIVE NEGATIVE MG/DL 07/04/2024 3:08 PM PROFESSIONAL SYSTEM ADMINISTRATOR [facility] BLOOD (U) NEGATIVE NEGATIVE 07/04/2024 3:08 PM PROFESSIONAL SYSTEM ADMINISTRATOR [facility] MUCUS MANY /LPF 07/04/2024 3:08 PM [facility] WBC/HPF 2 <6 /HPF 07/04/2024 3:08 PM PROFESSIONAL SYSTEM ADMINISTRATOR [facility] RBC/HPF 6(H) <6 /HPF 07/04/2024 3:08 PM PROFESSIONAL SYSTEM ADMINISTRATOR [facility] SQUAMOUS EPITHELIALS FEW /HPF 07/04/2024 3:08 PM PROFESSIONAL SYSTEM ADMINISTRATOR [facility] URINE SPECIMEN OBTAINED BY CLEAN CATCH PROCEDURE / Unknown 07/04/2024 1:38 PM PROFESSIONAL SYSTEM ADMINISTRATOR us Liv RUSSELL URINE ORDERABLES Final Result [facility] [address] [place] [address], [place] [phone] * (ABNORMAL) CULTURE URINE (07/04/2024 1:38 PM PROFESSIONAL SYSTEM ADMINISTRATOR) SPEC DESCRIPTION URINE CLEAN CATCH 07/04/2024 3:24 PM PROFESSIONAL SYSTEM ADMINISTRATOR [facility] SPECIAL REQUESTS NO SPECIAL REQUEST 07/04/2024 3:24 PM PROFESSIONAL SYSTEM ADMINISTRATOR [facility] CULTURE RESULT >100,000 COL/ML ESCHERICHIA COLI (A) 07/06/2024 7:53 AM PROFESSIONAL SYSTEM ADMINISTRATOR [facility] URINE SPECIMEN OBTAINED BY CLEAN CATCH PROCEDURE / Unknown 07/04/2024 1:38 PM PROFESSIONAL SYSTEM ADMINISTRATOR 07/04/2024 5:51 PM PROFESSIONAL SYSTEM ADMINISTRATOR Narrative Organism Antibiotic Method Susceptibility Escherichia coli [...] MICROBIOLOGY - GENERAL ORDERAB LES Final Result [facility] [address] [place] [address], [place] [phone] * (ABNORMAL) POCT urine (07/04/2024 1:37 PM PROFESSIONAL SYSTEM ADMINISTRATOR) URINE HCG TEST POSITIVE(A ) Internal Control: VALID us Liv RUSSELL POINT OF CARE TEST ORDERABLES Final Result * (ABNORMAL) COMPREHENSIVE METABOLIC PANEL (07/04/2024 1:34 PM [facility]) [facility] GLUCOSE 99 70 - 99 MG/DL 07/04/2024 2:22 PM [facility] BUN 7 7 - 18 MG/DL 07/04/2024 2:22 PM [facility] CREATININE S/P/B 0.62 0.55 - 1.02 MG/DL 07/04/2024 2:22 PM [facility] SODIUM S/P/B 134(L) 136 - 145 MMOL/L 07/04/2024 2:22 PM [facility] POTASSIUM S/P/B 3.2(L) 3.5 - 5.1 MMOL/L 07/04/2024 2:22 PM [facility] CHLORIDE S/P/B 103 97 - 115 MMOL/L 07/04/2024 2:22 PM [facility] CO2 26.0 21 - 32 MMOL/L 07/04/2024 2:22 PM [facility] CALCIUM S/P/B 9.4 8.5 - 10.1 MG/DL 07/04/2024 2:22 PM [facility] BILIRUBIN TOTAL S/P/B 0.6 0.2 - 1.2 MG/DL 07/04/2024 2:22 PM [facility] Comment: THIS ASSAY IS NOT RECOMMENDED FOR PATIENTS UNDERGOING TREATMENT WITH ELTROMBOPAG DUE TO THE POTENTIAL FOR FALSELY ELEVATED RESULTS. TOTAL PROTEIN S/P/B 8.1 6.4 - 8.2 G/DL 07/04/2024 2:22 PM [facility] ALBUMIN S/P/B 3.9 3.4 - 5.0 G/DL 07/04/2024 2:22 PM [facility] AST 11(L) 15 - 37 U/L 07/04/2024 2:22 PM PROFESSIONAL SYSTEM ADMINISTRATOR [facility] ALT 17 14 - 55 U/L 07/04/2024 2:22 PM [facility] ALKALINE PHOSPHATASE S/P/B 71 50 - 136 U/L 07/04/2024 2:22 PM [facility] ANION GAP 5.0 2 - 10 MMOL/L 07/04/2024 2:22 PM [facility] BUN CREATININE RATIO 11.3 6 - 26 07/04/2024 2:22 PM [facility] A/G RATIO 0.9(L) 1.0 - 2.0 RATIO 07/04/2024 2:22 PM [facility] GFR ESTIMATE >90 >90 ML/MIN/1.7 3 M2 07/04/2024 2:22 PM [facility] Comment: NOTE: eGFR is not calculated for patients <18 years of age or gender unknown. This is an estimated GFR calculation using the new CKD EPI creatinine equation without race and so does not require a correction factor for race. This estimated GFR should not be used for calculating drug doses. 07/04/2024 1:34 PM PROFESSIONAL SYSTEM ADMINISTRATOR Liv RUSSELL LABORATORY Final Result [facility] [address] [place] [address], * Quantitative HCG (07/04/2024 1:34 PM PROFESSIONAL SYSTEM ADMINISTRATOR) Pathologist [facility] HCG QUANTITATIVE 38,727 MIU/ML 07/04/19 2:52 PM [facility] Comment: WEEKS OF REFERENCE RANGES Non- [...] MONTHS 10,000 - 100,000 07/04/2024 1:34 PM PROFESSIONAL SYSTEM ADMINISTRATOR us Liv RUSSELL LABORATORY Final Result [facility] [address] [place] [address], * (ABNORMAL) CBC W/DIFF AUTOMATED (07/04/2024 1:34 PM PROFESSIONAL SYSTEM ADMINISTRATOR) Pathologist [facility] WBC 9.68 4.5 - 13.0 x10'3/uL 07/04/2024 2:05 PM PROFESSIONAL SYSTEM ADMINISTRATOR [facility] RBC 4.41 4.20 - 5.40 x10'6/uL 07/04/2024 2:05 PM PROFESSIONAL SYSTEM ADMINISTRATOR [facility] HGB 13.5 12.0 - 16.0 G/DL 07/04/2024 2:05 PM PROFESSIONAL SYSTEM ADMINISTRATOR [facility] HCT 39.3 38.0 - 48.0 % 07/04/2024 2:05 PM PROFESSIONAL SYSTEM ADMINISTRATOR [facility] MCV 89.1 81.0 - 99.0 FL 07/04/2024 2:05 PM PROFESSIONAL SYSTEM ADMINISTRATOR [facility] MCH 30.6 27.0 - 31.0 PG 07/04/2024 2:05 PM PROFESSIONAL SYSTEM ADMINISTRATOR [facility] MCHC 34.4 32.0 - 36.0 G/DL 07/04/2024 2:05 PM PROFESSIONAL SYSTEM ADMINISTRATOR [facility] RDW 13.8 11.5 - 14.5 % 07/04/2024 2:05 PM PROFESSIONAL SYSTEM ADMINISTRATOR [facility] PLT 269 130 - 400 x10'3/uL 07/04/2024 2:05 PM [facility] MPV 10.1 9.3 - 12.2 FL 07/04/2024 2:05 PM [facility] DIFFERENTIAL TYPE AUTOMATED DIFFERENTIAL 07/04/2024 2:05 PM [facility] NEUTROPHILS % 73.8 % 07/04/2024 2:05 PM [facility] LYMPHOCYTES % 21.6 % 07/04/2024 2:05 PM [facility] MONOCYTES % 4.1 % 07/04/2024 2:05 PM [facility] EOSINOPHILS 0.0 % 07/04/2024 2:05 PM [facility] BASOPHILS 0.1 % 07/04/2024 2:05 PM [facility] IMMATURE GRANS % 0.4 % 07/04/19 25 2:05 PM [facility] ABS. NEUTROPHILS 7.14 1.80 - 8.00 x10'3/uL 07/04/2024 2:05 PM [facility] ABS. LYMPHOCYTES 2.09 1.20 - 5.20 x10'3/uL 07/04/2024 2:05 PM [facility] ABS. MONOCYTES 0.40 0.24 - 0.86 x10'3/uL 07/04/2024 2:05 PM [facility] ABS. EOSINOPHILS 0.00(L) 0.04 - 0.36 x10'3/uL 07/04/2024 2:05 PM [facility] ABS. BASOPHILS 0.01 0.01 - 0.08 x10'3/uL 07/04/2024 2:05 PM [facility] ABS. IMMATURE GRANULOCYTES 0.04 0.00 - 0.49 x10'3/uL 07/04/2024 2:05 PM [facility] 07/04/2024 1:34 PM PROFESSIONAL SYSTEM ADMINISTRATOR Liv RUSSELL LABORATORY Final Result [facility] [address] [place] [address], [place] [phone] * BLOOD TYPING, ABO AND RH (07/04/2024 1:31 PM PROFESSIONAL SYSTEM ADMINISTRATOR) ABO/RH A POSITIVE 07/04/2024 2:55 PM PROFESSIONAL SYSTEM ADMINISTRATOR [facility] 07/04/2024 1:31 PM PROFESSIONAL SYSTEM ADMINISTRATOR Liv RUSSELL BLOOD BANK TEST ORDERABLES Fin al Result Performing Organization Address City/[facility]/ZIP Co de Phone Number [address] [address], [place] [phone] from Last 3 Months Care Teams Oil Field Tester Relationship Specialty Start Date End Date None, Provider, PCP - General UNKNOWN PHYSICIAN SPECIALTY 04/12/24
--- OUTSIDE RECORDS SUMMARY | 2024-08-10 02:42 | XMS_ITS | Clinical Summary ---
Author Organization [facility] Address [address] [place] [address] Care Team Providers Care Website Developer Name Role Phone Gwen Sofia MD Primary Care Provider [phone] Source Comments [facility],non-owned Affiliates and Associated Physician Practices is amultiple site organization consisting of ambulatory clinics and hospital sitesin [place], [place], [place] and [place]. This disclosure is being madepursuant to the Care Everywhere program and may not contain all information available regarding this patient. Last updated 18.[facility] Allergies No known active allergies Medications * [...] 08/06/2019 Assessment & Plan (08/06/2019 1:56 PM COMPLIANCE LEAD): Assessment: Symptoms likely represent vocal cord dysfunction. [...] Comments Blood Pressure 90/60 08/21/2021 8:40 AM COMPLIANCE LEAD Pulse 84 08/21/2021 8:40 AM COMPLIANCE LEAD Temperature 36.7 C (98 F) 08/21/2021 8:40 AM COMPLIANCE LEAD Respiratory Rate 18 08/21/2021 8:40 AM COMPLIANCE LEAD Oxygen Saturation 99% 08/21/2021 8:40 AM COMPLIANCE LEAD Inhaled Oxygen Concentration - - Weight 48.6 kg (107 lb 2.3 oz) 08/18/2021 8:29 P M COMPLIANCE LEAD Height 149.9 cm (4' 11 ) 08/18/2021 8:29 PM COMPLIANCE LEAD Body Mass Index 21.64 08/18/2021 8:29 PM COMPLIANCE LEAD Plan of Treatment Health Maintenance Due Date [...] Probe Negative Negative 10/18/2017 9:06 AM CDT [facility]CRO[facility] GC Amplified Probe Negative Negative 10/18/2017 9:06 AM CDT [facility]CRO[facility] Microbiology URINE / Unknown Collection / Unknown 10/17/2017 4:10 AM CDT 10/17/2017 4:15 AM CDT Narrative [facility] - 10/18/2017 9:06 AM CDT This test was developed and its performance characteristics determined by the [facility], [facility]. Female urine specimens tested by the [facility] have not been cleared or approved by [...] Win MD LAB - MICROBIOLOGY O RDERABLES [facility] [address] [place] [address], [facility] [phone] from Last 3 Months or Most Recently Relevant to Health Maintenance Care Teams Website Developer Relationship Specialty Start Date End Date Gwen Sofia MD [address] [place] [address] [place] [id number] PCP - General Pediatrics 10/17/17
--- OUTSIDE RECORDS SUMMARY | 2024-08-10 02:42 | XMS_ITS | Patient Health Summary ---
Author Organization [facility] Address [address] [place] [address] Care Team Providers Care Central Supply Clerk Name Role Phone Gwen Sofia MD Primary Care Provider Note from [facility],non-owned Affiliates and Associated Physician Practices is amultiple site organization consisting of ambulatory clinics and hospital sitesin [place], [place], [place] and [place]. This disclosure is being madepursuant to the Care Everywhere program and may not contain all information available regarding this patient. Last updated 18.[facility] Allergies No known active allergies Medications * [...] Comments Blood Pressure 90/60 08/21/2021 8:40 AM COMB TENDER Pulse 84 08/21/2021 8:40 AM COMB TENDER Temperature 36.7 C (98 F) 08/21/2021 8:40 AM COMB TENDER Respiratory Rate 18 08/21/2021 8:40 AM COMB TENDER Oxygen Saturation 99% 08/21/2021 8:40 AM COMB TENDER Inhaled Oxygen Concentration - - Weight 48.6 kg (107 lb 2.3 oz) 08/18/2021 8:29 P M COMB TENDER Height 149.9 cm (4' 11 ) 08/18/2021 8:29 PM COMB TENDER Body Mass Index 21.64 08/18/2021 8:29 PM COMB TENDER Procedures * URINE DRUG SCREEN IMMUNOASSAY(Performed 08/19/2021) [...] * ALCOHOL ETHYL BLOOD(Performed 03/06/2021) * PT-INR [facility](Performed 03/06/2021) * COMPREHENSIVE METABOLIC PANEL(Performed 03/06/2021) * [...] URINE DRUG SCREEN IMMUNOASSAY (08/19/2021 7:22 PM COMB TENDER) [facility] Amphetamines Screen Urine Negative Negative : < 1000 ng/mL 08/19/2021 8:06 PM [facility] Barbiturates Screen Urine Negative Negative : < 200 ng/mL 08/19/2021 8:06 PM [facility] Benzodiazepine Screen Urine Negative Negative : < 200 ng/mL 08/19/2021 8:06 PM COMB TENDER [facility] Opiates Urine Negative Negative : < 300 ng/mL 08/19/2021 8:06 PM [facility] Cocaine Metabolites Urine Negative Negative : < 300 ng/mL 08/19/2021 8:06 PM [facility] Phencyclidine Screen Urine Negative Negative : < 25 ng/ml 08/19/2021 8:06 PM [facility] Cannabinoids Screen Urine Positive(AA) Negative : <50 ng/mL 08/19/2021 8:06 PM [facility] Comment: Positive urine cannabinoids (THC) screening results should be confirmed by another generally accepted non-immunological method such as gas chromatography or mass spectrometry. Critical results called to Erica Alaniz RN with read-back. Methadone Screen Urine Negative Negative : < 300 ng/mL 08/19/2021 8:06 PM [facility] Fentanyl Screen Urine Negative Negative : <1.0 ng/mL 08/19/2021 8:06 PM [facility] Urine URINE / Unknown Collection / Unknown 08/19/2021 7:22 PM COMB TENDER 08/19/2021 7:27 PM [facility] - 08/19/2021 8:06 PM [facility] The Urine Toxicology Screening Panel does not screen for Propoxyphene, Meprobamate, Carisoprodol, Trazodone, oreu-jkj-yrknnxo medications and/or volatiles (Acetone, Isopropanol, Methanol or Ethylene Glycol). Ethanol, Salicylate, Acetaminophen, Tricyclic Antidepressants and several therapeutic drugs may be individually assayed in serum or plasma specimen. Toxicology testing by the [facility] is an aid to medical diagnosis and treatment of patients. No documented chain of custody was maintained. Results are intended to be used for clinical purposes only. Syed Win MD LAB - URINE CHEMISTR Y ORDERABLES [facility] [address] [place] [address], [facility] [phone] * (ABNORMAL) CBC W AUTO DIFFERENTIAL (08/19/2021 7:12 PM COMB TENDER) Only the most recent of4 resultswithin the time period is included. WBC 6.2 4.5 - 11.0 10 3/uL 08/19/2021 7:32 PM [facility] RBC 4.28 4.10 - 5.10 10 6/uL 08/19/2021 7:32 PM [facility] Hemoglobin 12.3 12.0 - 16.0 g/dL 08/19/2021 7:32 PM [facility] Hematocrit 38.1 36.0 - 47.0 % 08/19/2021 7:32 PM [facility] MCV 89.0 78.0 - 98.0 fL 08/19/2021 7:32 PM [facility] MCH 28.7 25.0 - 35.0 pg 08/19/2021 7:32 PM [facility] MCHC 32.3 31.0 - 37.0 g/dL 08/19/2021 7:32 PM [facility] Platelet Count 254 100 - 400 10 3/uL 08/19/2021 7:32 PM [facility] RDW-SD 44.7 36.0 - 50.0 fL 08/19/2021 7:32 PM [facility] RDW-CV 13.8 11.5 - 14.0 % 08/19/2021 7:32 PM [facility] MPV 9.8(H) 6.0 - 9.5 fL 08/19/2021 7:32 PM [facility] nRBC Absolute 0.00 0 10 3/uL 08/19/2021 7:32 PM [facility] nRBC Auto 0.0 0 /100 WBC 08/19/2021 7:32 PM [facility] Neutrophils % 49.8 31.0 - 78.0 % 08/19/2021 7:32 PM [facility] Lymphocytes % 38.2 13.0 - 54.0 % 08/19/2021 7:32 PM [facility] Monocytes % 8.5 4.0 - 13.0 % 08/19/2021 7:32 PM [facility] Eosinophils % 2.9 0.0 - 8.0 % 08/19/2021 7:32 PM [facility] Basophil % 0.3 0.0 - 100.0 % 08/19/2021 7:32 PM [facility] Neutrophils Absolute 3.1 1.4 - 8.6 10 3/uL 08/19/2021 7:32 PM [facility] Lymphocyte Absolute 2.4 0.6 - 5.9 10 3/uL 08/19/2021 7:32 PM [facility] Monocytes Absolute 0.53 0.18 - 1.43 10 3/uL 08/19/2021 7:32 PM [facility] Eosinophils Absolute 0.18 0.00 - 0.88 10 3/uL 08/19/2021 7:32 PM [facility] Basophils Absolute 0.02 0.00 - 0.22 10 3/uL 08/19/2021 7:32 PM [facility] Immature Granulocytes % 0.3 0.0 - 1.0 % 08/19/2021 7:32 PM [facility] Immature Granulocytes Absolute 0.02 08/19/2021 7:32 PM [facility] Blood BLOOD SPECIMEN / Unknown Venipuncture / Unknown 08/19/2021 7:12 PM COMB TENDER 08/19/2021 7:27 PM [facility] Syed Win MD LAB - HEMATOLOGY ORD ERABLES [facility] [address] [place] [address], [facility] [phone] * (ABNORMAL) COMPREHENSIVE METABOLIC PANEL (08/19/2021 7:12 PM COMB TENDER) Only the most recent of4 resultswithin the time period is included. BUN 12 5 - 19 mg/dL 08/19/2021 7:53 PM [facility] Creatinine 0.61 0.56 - 0.96 mg/dL 08/19/2021 7:53 PM [facility] Sodium 142 136 - 145 mmol/L 08/19/2021 7:53 PM [facility] Potassium 3.7 3.5 - 5.1 mmol/L 08/19/2021 7:53 PM [facility] Chloride 106 98 - 107 mmol/L 08/19/2021 7:53 PM [facility] CO2 26 20 - 28 mmol/L 08/19/2021 7:53 PM [facility] Glucose 104 70 - 115 mg/dL 08/19/2021 7:53 PM [facility] Calcium 9.1 8.4 - 10.2 mg/dL 08/19/2021 7:53 PM [facility] Protein Total 7.3 6.0 - 8.3 g/dL 08/19/2021 7:53 PM [facility] Albumin 3.7 3.4 - 5.0 g/dL 08/19/2021 7:53 PM [facility] Bilirubin Total 0.3 0.3 - 1.2 mg/dL 08/19/2021 7:53 PM [facility] Alkaline Phosphatase 85(L) 100 - 390 U/L 08/19/2021 7:53 PM [facility] ALT 17 5 - 55 U/L 08/19/2021 7:53 PM [facility] AST 17 3 - 35 U/L 08/19/2021 7:53 PM [facility] Anion Gap 14 8 - 18 08/19/2021 7:53 PM [facility] BUN/Creatinine Ratio 20 7 - 23 08/19/2021 7:53 PM [facility] Osmolality Calculated 294 270 - 300 mOsm/kg 08/19/2021 7:53 PM [facility] Blood BLOOD SPECIMEN / Unknown Venipuncture / Unknown 08/19/2021 7:12 PM COMB TENDER 08/19/2021 7:27 PM [facility] Syed Win MD LAB - CHEMISTRY ABBIE HIRSCH [facility] Organization Address City/State/ZIP Co de Phone Number [facility] [address] [place] [address], [facility] [phone] * EKG 15-LEAD (08/19/2021 5:28 PM COMB TENDER) Only the most recent of2 resultswithin the time period is included. Ventricular Rate 82 BPM CG MUSE Atrial Rate 82 BPM CG MUSE P-R Interval 120 ms CG MUSE QRS Duration ms 96 ms CG MUSE Q-T Interval ms 374 ms CG MUSE QTC Calculation (Bezet) 436 ms CG MUSE Calculated P Sentinel 47 degrees CG MUSE Calculated R Sentinel 82 degrees CG MUSE Calculated T Sentinel 23 degrees CG MUSE Interpretation EKG Normal sinus rhythm Incomplete right bundle branch block Confirmed by DEIDRE CHAUDHARY MD ([id number]) on 08/20/2021 12:58:40 PM CG MUSE 08/19/2021 5:28 PM COMB TENDER 08/20/2021 12:58 PM COMB TENDER Syed Win MD ECG ORDERABLES Performing Organization Address City/[facility]/ZIP Co de Phone Number CG MUSE * SARS-COV-2 (COVID-19) FLU A/B RSV PCR RAPID (08/19/2021 10:36 AM COMB TENDER) COVID-19 PCR Not detected Not detected 08/19/19 11:24 AM COMB TENDER [facility] Influenza A PCR Not detected Not detected 08/19/2021 11:24 AM COMB TENDER [facility] Influenza B PCR Not detected Not detected 08/19/2021 11:24 AM COMB TENDER [facility] RSV PCR Not detected Not detected 08/19/2021 11:24 AM COMB TENDER [facility] Microbiology SPECIMEN FROM NASOPHARYNGEAL STRUCTURE / Unknown Collection / Unknown 08/19/2021 10:36 AM COMB TENDER 08/19/2021 10:40 AM COMB TENDER Narrative [facility] - 08/19/2021 11:24 AM COMB TENDER This nucleic acid amplification assay has been [...] Coughlin MD LAB - MICROBIOLOGY O RDERABLES [facility] [address] [place] [address], [facility] [phone] * HCG URINE QUALITATIVE - POCT (IP) INTERFACED (08/18/2021 10:04 PM COMB TENDER) HCG Qual Urine Negative Negative 08/18/2021 10:15 PM COMB TENDER [facility] Urine URINE / Unknown 08/18/2021 1 0:04 PM COMB TENDER 08/18/2021 10:15 PM COMB TENDER Sachin Banegas MD LAB - POINT OF CARE ORDERABLES Performing Organization Address City/State/[facility] Co de Phone Number [facility] [place] [address] * URINALYSIS W/MICROSCOPIC NO CULTURE (08/18/2021 9:46 PM COMB TENDER) Only the most recent of3 resultswithin the time period is included. Color UA Yellow Straw, Yellow 08/18/2021 10:28 PM [facility] Clarity UA Clear Clear 08/18/2021 10:28 PM [facility] Specific [place] UA 1.009 1.005 - 1.030 08/18/2021 10:28 PM [facility] pH UA 6.0 5.0 - 8.0 pH 08/18/2021 10:28 PM [facility] Protein UA Negative Negative 08/18/2021 10:28 PM [facility] Glucose UA Negative Negative 08/18/2021 10:28 PM [facility] Ketone UA Negative Negative 08/18/2021 10:28 PM [facility] Bilirubin UA Negative Negative 08/18/2021 10:28 PM [facility] Blood UA Negative Negative 08/18/2021 10:28 PM [facility] Nitrite UA Negative Negative 08/18/2021 10:28 PM [facility] Leukocyte Esterase Negative Negative 08/18/2021 10:28 PM [facility] Urobilinogen UA Negative Negative mg/dL 08/18/2021 10:28 PM [facility] RBC UA 0-2 None Seen, 0-2, 3-5 /HPF 08/18/2021 10:28 PM [facility] WBC UA 0-5 None Seen, 0-5 /HPF 08/18/2021 10:28 PM [facility] Squamous Epithelial Cells UA 0-2 None Seen, 0-2, 3-5 /HPF 08/18/2021 10:28 PM [facility] Mucus UA 2+ /LPF 08/18/2021 10:28 PM [facility] Urine URINE SPECIMEN OBTAINED BY CLEAN CATCH PROCEDURE / Unknown Collection / Unknown 08/18/2021 9:46 PM COMB TENDER 08/18/2021 10:06 PM COMB TENDER Narrative [facility] - 08/18/2021 10:28 PM COMB TENDER Sachin Banegas MD LAB - URINALYSIS ORD ERABLES Performing Organization Address City/[facility]/ZIP Co de Phone Number [facility] [address] [place] [address], [facility] [phone] * DRUG SCREEN TOX COMPREHESIVE URINE PANEL (08/18/2021 9:46 PM COMB TENDER) Drug Screen Urine Comprehensive Panel See Scanned Report 08/19/2021 1:21 PM [facility] Urine URINE / Unknown Collection / Unknown 08/18/2021 9:46 PM COMB TENDER 08/18/2021 10:06 PM COMB TENDER Sachin Banegas MD LAB - URINE CHEMISTR Y ORDERABLES [facility] ATTN Dr Dylan Gonzáles [address] * ALCOHOL ETHYL BLOOD (08/18/2021 9:43 PM COMB TENDER) Only the most recent of2 resultswithin the time period is included. Ethanol (mg/dL) <10 <10 mg/dL 10:25 PM [facility] Ethanol Calculated (g/dL) <0.010 <0.010 g/dL 08/18/2021 10:25 PM [facility] Blood BLOOD SPECIMEN / Unknown Venipuncture / Unknown 08/18/2021 9:43 PM COMB TENDER 08/18/2021 10:00 PM COMB TENDER [facility] - 08/18/2021 10:25 PM COMB TENDER Ethanol Interp <10: None Detected. Depression of VIDEOTAPE SALES REPRESENTATIVE: >100 mg/dl Potentially Critical: >250 mg/dl Potentially [...] - CHEMISTRY ABBIE HIRSCH Performing Organization Address City/[facility]/ZIP Co de Phone Number [address] [address], [facility] [phone] * (ABNORMAL) SALICYLATE LEVEL BLOOD (08/18/2021 9:43 PM COMB TENDER) Salicylate <5(L) 15 - 30 mg/dL 08/18/2021 10:25 PM COMB TENDER [facility] Blood BLOOD SPECIMEN / Unknown Venipuncture / Unknown 08/18/2021 9:43 PM COMB TENDER 08/18/2021 10:00 PM COMB TENDER [facility] - 08/18/2021 10:25 PM COMB TENDER This test is not intended for use with low-dose aspirin therapy. Most patients on low-dose aspirin for cardiovascular prophylaxis will have serum concentrations near or below the lower limit of the analytical range. Sachin Banegas MD LAB - CHEMISTRY ABBIE HIRSCH Performing Organization Address [facility]/ZIP Co de Phone Number [address] [address], [facility] [phone] * ACETAMINOPHEN LEVEL (08/18/2021 9:43 PM COMB TENDER) Acetaminophen <3.0 <3.0 ug/mL 08/18/2021 10:25 PM COMB TENDER [facility] Blood BLOOD SPECIMEN / Unknown Venipuncture / Unknown 08/18/2021 9:43 PM COMB TENDER 08/18/2021 10:00 PM COMB TENDER [facility] - 08/18/2021 10:25 PM COMB TENDER Acetaminophen Toxicity Levels (Hours Post Ingestion): >200 [...] may alter the peak level. Contact the [facility] at or reserved for healthcare professionals to assist you in evaluating potentially toxic acetaminophen levels. Sachin Banegas MD LAB - CHEMISTRY ABBIE HIRSCH Performing Organization Address City/[facility]/ZIP Co de Phone Number [address] [address], [facility] [phone] * HCG URINE QUAL POCT NOTIFICATION (08/18/2021 9:30 PM COMB TENDER) Comment Notification Label Only - See Separate Report 08/18/2021 11:00 PM COMB TENDER [facility] Urine URINE / Unknown 08/18/2021 9 :30 PM COMB TENDER 08/18/2021 9:43 PM COMB TENDER Sachin Banegas MD LAB - URINALYSIS ORD ERABLES Performing Organization Address [facility] Co de Phone Number [facility] [place] [address] * HCG URINE QUALITATIVE (03/06/2021 8:46 PM CDT) Test Urine Negative Negative 03/06/2021 9:32 PM CDT [facility] Urine URINE / Unknown Collection / Unknown 03/06/2021 8:46 PM CDT 03/06/2021 9:02 PM CDT Robert Westbrook MD LAB - URINALYSIS ORD ERABLES Performing Organization Address City/[facility]/ZIP Co de Phone Number [address] [address], [facility] [phone] * CT HEAD CERV SPINE WO CONTRAST [...] were discussed with Dr. Gonzáles by Dr. Halmlan at 1915 hours 03/06/2021. *Reading Radiologist: Martina [...] MD DIAGNOSTIC IMAGING O RDERABLES * PT-INR [facility] (03/06/2021 6:32 PM CDT) PT 13.4 12.1 - 14.8 Seconds 03/06/2021 6:54 PM CDT [facility] INR 1.1 See Comment 03/06/2021 6:54 PM CDT [facility] Comment:The suggested therap eutic range for standard coumadin (warfarin) therapy is an INR of 2.0-3.0. For high-risk patients (Mechanical Mitral Valve Prosthesis, etc.), the suggested prophylactic therapeutic range is an INR of 2.5-3.5. Blood BLOOD SPECIMEN / Unknown Venipuncture / Unknown 03/06/2021 6:32 PM CDT 03/06/2021 6:44 PM CDT Narrative [facility] - 03/06/2021 6:54 PM CDT Reference intervals for this test are valid for adults at [facility]. Pediatric reference intervals may be slightly different. Robert Westbrook MD LAB - COAGULATION OR DERABLES [facility] [address] [place] [address], [facility] [phone] * HCG URINE QUALITATIVE - POCT (IP) ANITRA (10/17/2017 4:23 AM CDT) HCG Qual Urine Negative Negative [facility] POCT TESTING QC Verified Yes Yes [facility] PO CT TESTING Urine URINE / Unknown 10/17/2017 4 :23 AM CDT Syed Win MD LAB - POINT OF CARE ORDERABLES Performing Organization Address City/[facility]/ZIP Co de Phone Number [facility] POCT TESTING [address] [facility] [address], [facility] [phone] * CHLAMYDIA + GC AMPLIFIED PROBE (10/17/2017 4:10 AM CDT) Chlamydia Amplified Probe Negative Negative 10/18/2017 9:06 AM CDT [facility] GC Amplified Probe Negative Negative 10/18/2017 9:06 AM CDT [facility] Microbiology URINE / Unknown Collection / Unknown 10/17/2017 4:10 AM CDT 10/17/2017 4:15 AM CDT Narrative [facility] - 10/18/2017 9:06 AM CDT This test was developed and its performance characteristics determined by the [facility], [facility]. Female urine specimens tested by the [facility] have not been cleared or approved by [...] - MICROBIOLOGY O RDERABLES Performing Organization Address City/[facility]/ZIP Co de Phone Number [facility] [address] [place] [address], [facility] [phone] * CULTURE URINE (10/17/2017 4:09 AM CDT) Culture Urine No growth (<1,000 CFU/mL) EMA 10/18/2017 3:07 PM CDT [facility] Urine URINE SPECIMEN OBTAINED BY CLEAN CATCH PROCEDURE / Unknown Collection / Unknown 10/17/2017 4:09 AM CDT 10/17/2017 4:16 AM CDT Syed Win MD LAB - MICROBIOLOGY O RDERABLES [facility]CRO[facility] [address] [place], [place] [address], [facility] [phone] * US RLQ PAIN IN ER (10/17/2017 [...] AM. Dictated by Fatimah Melendez MD (residential roofer). I, Manav Alonso, have personally reviewed the [...] AM. Dictated by Fatimah Melendez MD (residential roofer). I, Manav Alonso, have personally reviewed the images and I agree with this report. Mi Linn MD US ORDERABLES * (ABNORMAL) DIFFERENTIAL MANUAL (10/17/2017 12:39 AM CDT) WBC Auto 11.4 x10E9/L 10/17/2017 2:11 AM CDT [facility] WBC Corrected 4.5 - 14.5 x10E9/L 10/17/2017 2:11 AM CDT [facility] nRBC /100 WBC 10/17/2017 2:11 AM CDT [facility] Neutrophil % Manual 72(H) 24 - 66 % 10/17/2017 2:11 AM CDT [facility] Lymphocytes % Manual 15(L) 22 - 61 % 10/17/2017 2:11 AM CDT [facility] Monocytes % Manual 8 3 - 15 % 10/17/2017 2:11 AM T [facility] Eosinophils % Manual 2 0 - 10 % 10/17/2017 2:11 AM CDT [facility] Basophils % Manual 1 % 10/17/2017 2:11 AM T [facility] Band % Manual 2 % 10/17/2017 2:11 AM T [facility] Cells Counted 100 # cells 10/17/2017 2:11 AM T [facility] Platelet Estimation Adequate platelets Normal, Adequate platelets 10/17/2017 2:11 AM T [facility] WBC Morph Normal 10/17/2017 2:11 AM T [facility] Anisocytosis Occasional(A ) None 10/17/2017 2:11 AM T [facility] Hypochromia Occasional(A ) None 10/17/2017 2:11 AM T [facility] Poikilocytosis Occasional(A ) None 10/17/2017 2:11 AM T [facility] Ovalocytes Occasional(A ) None 10/17/2017 2:11 AM T [facility] Target Cells Occasional(A ) None 10/17/2017 2:11 AM T [facility] Blood BLOOD SPECIMEN / Unknown Venipuncture / Unknown 10/17/2017 12:39 AM CDT 10/17/2017 12:54 AM CDT Syed Win MD LAB - HEMATOLOGY ORD ERABLES [facility] [address] [place], [place] [id number] * LIPASE BLOOD (10/17/2017 12:38 AM CDT) Lipase 33 10 - 220 U/L 10/17/2017 1:25 AM CDT [facility] Blood BLOOD SPECIMEN / Unknown Venipuncture / Unknown 10/17/2017 12:38 AM CDT 10/17/2017 12:54 AM CDT Syed Win MD LAB - CHEMISTRY ABBIE HIRSCH Performing Organization Address City/State/[facility] Co de Phone Number [facility] [address] [place] [address] Care Teams Central Supply Clerk Relationship Specialty Start Date End Date Gwen Sofia MD [address] [place] [address] PCP - General Pediatrics 10/17/17
--- NOTE | 2024-08-10 03:10 | ED_ITS ---
HPI - Back Pain/Injury General Chief Complaint: Back Pain/Injury Stated Complaint: Rlower back pain radiating to stomach. 12 wks preg Time Seen by Provider: 08/10/24 02:16 History of Present Illness HPI Narrative: 18-year-old female that is approximately 12 weeks by ultrasonography date. She follows with Dr. Filipe Plata on outpatient basis who is her local did OBGYN. For last days she has been having some right-sided CVA pain that radiates towards her abdomen but denies any right lower quadrant pain. No dysuria, hematuria or frequency/urgency. Denies any fever chills. Has not taken anything for the pain at home. She was otherwise in her normal state of health and this is her 1st . No complications thus far cut. Confirmed intrauterine on outpatient ultrasound per her report. Denies any vaginal bleeding or spotting. No leakage of fluids. Related Data Allergies Allergy/AdvReac Type Severity Reaction Status Date / Time No Known Allergies Allergy Mild Verified 01/11/22 20:14 Review of Systems 2 Review of Systems: As reviewed above in HPI Exam 2 Narrative: GENERAL: [Well-appearing, well-nourished, and in no acute distress.] HEAD: [Normocephalic, atraumatic.] EYES: [PERRLA and EOMI.] ENT: Nares clear, no rhinorrhea or epistaxis. Mucous membranes moist. NECK: Supple. CHEST: [Clear to auscultation. No respiratory distress.] HEART: [Regular rate and rhythm]. No murmur heard. [Normal peripheral pulses.] ABDOMEN: [Soft, nondistended], right-sided CVA tenderness, no overlying skin changes. No tenderness in the right lower quadrant, negative psoas, Rovsing and obturator sign. Benign abdominal exam aside from right CVA, [No rigidity or guarding] EXTREMITIES: Normal range of motion. [No edema.] SKIN: Warm, dry, no rash. NEURO: [No focal deficits]. Alert and oriented [x3.] PSYCH: [Normal mood and affect.] Course Vital Signs Vital signs: Vital Signs Temperature 36.5 C 08/09/24 22:29 Pulse Rate 103 H 08/09/24 22:29 Respiratory Rate 19 08/09/24 22:29 Blood Pressure 124/66 08/09/24 22:29 Pulse Oximetry 100 08/09/24 22:29 Oxygen Delivery Room Air 08/09/24 22:29 Temperature 36.5 C 08/09/24 22:29 Pulse Rate 103 H 08/09/24 22:29 Respiratory Rate 19 08/09/24 22:29 Blood Pressure 124/66 08/09/24 22:29 Pulse Oximetry 100 08/09/24 22:29 Oxygen Delivery Room Air 08/09/24 22:29 MDM - Back Pain/Injury MDM Narrative Medical decision making narrative: 18-year-old female that is approximately 12 weeks by ultrasonography days. This is her 1st . She presents today with right-sided flank pain. No groin pain or any colicky quality to her symptoms. No fever chills. No urinary complaints. She is otherwise well-appearing and not in any acute distress. She is slightly tachycardic with a pulse of 103 but otherwise no blood pressure concerns, fever, hypoxia or tachypnea. She has reproducible pain on the right CVA with palpation. No tenderness in the lower abdominal region or anything in her abdominal quadrants. Overall benign abdominal examination. Suspicion presently is for potential pyelonephritis in versus urinary tract infection versus less likely kidney stone. She has had IUP confirmed on outpatient ultrasound and does not require any additional imaging at this time. Denies any vaginal bleeding or spotting. Urinalysis was obtained as well as blood work. Urinalysis shows significant white blood cells, 4+ bacteria and leukocyte esterase consistent with urinary tract infection and combined with her CVA symptoms is suspicious for pyelonephritis in first-trimester . Remaining workup shows no leukocytosis or anemia. Normal platelet count. Normal electrolytes and normal renal function panel. Normal hepatic function panel. Spoke with the patient about plan going forward. She is very close outpatient follow-up with her OBGYN and PCP. Will give her dose of IV Rocephin and start her on 2 week course of cefpodoxime for treatment of clinical diagnosis of pyelonephritis. She is otherwise very well-appearing I do not believe would benefit from hospitalization at this juncture. She was instructed to follow up closely with her PCP and OBGYN and return if she develops any intractable fevers despite Tylenol, worsening pain, developing new symptoms, vaginal symptoms or any other concerns. Patient verbalized understanding these instructions and was safe for discharge upon completion of her antibiotic. Medical Records Attestation: I reviewed the patient's medical records. Lab Data Attestation: I reviewed the patient's lab results. 08/10/24 01:15 08/10/24 01:15 Labs: Lab Results 08/10/24 08/10/24 Range/Units 01:15 01:23 WBC 9.3 (4.5-10.0) K/mm3 RBC 3.95 L (4.2-5.4) M/mm3 Hgb 12.3 (12.0-15.0) g/dL Hct 35.4 L (37.0-47.0) % MCV 89.6 (80-100) fl MCH 31.1 (26-34) pg MCHC 34.7 (32-36) g/dl RDW 13.2 (11.5-14.5) % Plt Count 208 (150-375) k/mm3 MPV 10.0 (7.4-10.4) fl Immature Gran % (Auto) 0.3 (0-0.5) % Neut % (Auto) 71.9 (45.5-73.1) % Lymph % (Auto) 18.9 (18.3-44.2) % Bourbon % (Auto) 8.3 (2.6-8.5) % Eos % (Auto) 0.4 (0-4.4) % Baso % (Auto) 0.2 (0.2-1.2) % Lymph # (Auto) 1.76 (0.9-3.2) K/mm3 Bourbon # (Auto) 0.8 H (0.1-0.6) K/mm3 Eos # (Auto) 0.0 (0-0.3) K/mm3 Baso # (Auto) 0.0 (0.0-0.1) K/mm3 Abs Immat Gran (auto) 0.03 (0.00-0.031) K/mm3 Absolute Neuts (auto) 6.7 (1.3-6.7) K/mm3 Absolute Nucleated RBC 0.000 (0.0-0.012) K/mm3 Nucleated RBC % 0.0 (0.0-0.2) % Sodium 136 L (137-145) mmol/L Potassium 3.8 (3.4-5.0) mmol/L Chloride 103 (98-107) mmol/L Carbon Dioxide 22 (22-30) mmol/L Anion Gap 11 (4-12) mmol/L BUN 5 L (7-17) mg/dL Creatinine 0.42 L (0.7-1.0) mg/dL Estim Creat Clear Calc Not Reportable Estimated GFR > 60 (59 - ) Glucose 100 (65-110) mg/dL Calcium 9.4 (8.4-10.2) mg/dL Total Bilirubin 0.4 (0.2-1.3) mg/dL AST 20 (14-36) U/L ALT 12 (6-35) U/L Alkaline Phosphatase 52 (38-126) U/L Total Protein 7.0 (6.3-8.2) g/dL Albumin 3.9 (3.5-5.1) g/dL Lipase 99 (23-300) U/L Urine Color Yellow (Yellow) Urine Appearance Turbid H (Clear) Urine pH 6.0 (5.0-9.0) Ur Specific Hiko 1.013 (1.001-1.035) Urine Protein 3+ H (Negative) mg/dL Urine Glucose (UA) Negative (Negative) mg/dL Urine Ketones Negative (Negative) mg/dL Ur Blood (Man) 2+ H (Negative) Urine Nitrate Negative (Negative) Urine Bilirubin Negative (Negative) Urine Urobilinogen 0.2 (<2.0) mg/dL Add Ur Microanalysis Reviewed Leukocyte Esterase Rfl 1+ H (Negative) TESSY/UL Urine RBC 6-10 H (0-2) /hpf Urine WBC >100 H (0-3) /hpf Ur Squamous Epith Cells Moderate (Few) /hpf Urine Bacteria 4+ /hpf Urine Casts 3-5 Urine Yeast (Budding) Present H (None) /hpf POC Urine HCG, Qual Positive (Negative) Discharge Plan Discharge Clinical Impression: Pyelonephritis affecting in first trimester Patient Disposition: Home, Self-Care Condition: Stable Instructions: Antibiotic Form, Kidney Infection (ED), Flank Pain (ED), Urinary Tract Infection in (ED) Additional Instructions: We will send you home with 2 weeks of antibiotics. Take Tylenol around the clock for pain control. If you have any worsening pain, worsening symptoms, or develop any new concerns please return to the ER for evaluation otherwise please call your OBGYN and PCP for close outpatient evaluation in the next several days. Patient Language: Sinhala Prescriptions: New cefpodoxime 200 mg tablet 200 mg PO Q12H 14 Days Qty: 28 0RF Rx Instructions: must administer with a meal/food Follow-up/Referrals: Robert Agarwal MD [Physician] - 3 Days (Possible pyelonephritis, first- trimester ) Kimberlyn,Gwen Zarate MD [Primary Care Provider] - Time of Disposition: 03:17
[2024-08-10] MEDS: ACETAMINOPHEN 500 MG TABLET 1000 MG PO (03:33)
[2024-08-10] MEDS: SODIUM CHLORIDE 0.9% IV 1,000 ML 999 ML IV CONT (03:34)
[2024-08-10 04:11] VITALS: BP 119/67; PULSE 92; RESP 17; O2SAT 100
== END 2024-08-10 04:13 | disposition home or self-care (01) ==
PROVIDERS: Emergency Provider Student in an Organized Health Care Education/Training Program; PCP Pediatrics Adolescent Medicine
DX: O23.01 Infections of kidney in pregnancy, first trimester (principal); Z3A.12 12 weeks gestation of pregnancy
CPT/HCPCS: 36415; 80053; 81001; 81025; 83690; 85025; 96365; 99284; A9270; J0696; J7030

== ENCOUNTER 2024-11-06 14:59 | Emergency (ER) | payer BC, SELFPAY ==
[2024-11-06 15:01] VITALS: BP 119/69; PULSE 84; RESP 20; TEMP 36.5; O2SAT 98
--- OUTSIDE RECORDS SUMMARY | 2024-11-06 15:02 | XMS_ITS | Clinical Summary ---
Author Organization [facility] [employer] Address [address] [address] Care Team Providers Care Solar Field Service Technician Name Role Phone Gwen Sofia MD Primary Care Provider [phone] Source Comments [facility] [employer],non-owned Affiliates and Associated Physician Practices is amultiple site organization consisting of ambulatory clinics and hospital sitesin [place], [place], [place] and [place]. This disclosure is being madepursuant to the Care Everywhere program and may not contain all information available regarding this patient. Last updated 18.[facility] [employer] Allergies No known active allergies Medications * Be aware that medications may not be up to date on this document. Alwaysverify current medications with the patient. Methylphenidat e HCl (METHYLPHENIDA TE CR) 36 MG tablet Take 1 tablet by mouth once daily 9 Active ibuprofen (MOTRIN) 600 MG tablet Take 1 (one) tablet by mouth every 8 hours as needed for Pain 20 tablet 1 Active acetaminophen (TYLENOL) 325 MG tablet Take 2 (two) tablets by mouth every 6 hours as needed for Fever or Pain Maximum allowable Acetaminophen amount = 4 Grams (4000 mg) / 24 hours. 20 tablet 1 Active Active Problems Problem Noted Date Diagnosed Date Vocal cord dysfunction 08/06/2019 Assessment & Plan (08/06/2019 1:56 PM NURSING COORDINATOR): Assessment: Symptoms likely represent vocal cord dysfunction. [...] influenza vaccine today F/U as needed Immunizations Immunization Administration Dates Next Due INFLUENZA VACCINE, QUADR. [...] Date Recorded PHQ2 TOTAL SCORE 6 08/19/2021 Comments No Sex and Gender Information Value Date Recorded Sex Assigned at Not on file Legal Sex Female 11:11 PM CDT Gender Identity Not on file Sexual Orientation Not on file Last Filed Vital Signs Vital Sign Reading Time Taken Comments Blood Pressure 90/60 08/21/2021 8:40 AM NURSING COORDINATOR Pulse 84 08/21/2021 8:40 AM NURSING COORDINATOR Temperature 36.7 C (98 F) 08/21/2021 8:40 AM NURSING COORDINATOR Respiratory Rate 18 08/21/2021 8:40 AM NURSING COORDINATOR Oxygen Saturation 99% 08/21/2021 8:40 AM NURSING COORDINATOR Inhaled Oxygen Concentration - - Weight 48.6 kg (107 lb 2.3 oz) 08/18/2021 8:29 P M NURSING COORDINATOR Height 149.9 cm (4' 11 ) 08/18/2021 8:29 PM NURSING COORDINATOR Body Mass Index 21.64 08/18/2021 8:29 PM NURSING COORDINATOR Plan of Treatment Health Maintenance Due Date Last Done Comments HIV SCREENING 11/19/2018 HPV VACCINE (1 - 3-dose series) 11/19/2018 CHLAMYDIA/GONORRHEA SCREENING 2019 10/17/2017 MENINGOCOCCAL (Group B) VACCINE SHARED DECISION-MAKING (1 of 2 - Standard) 2019 HEPATITIS C SCREENING 11/15/2021 DTAP/TDAP/TD VACCINES (1 - Tdap) 11/19/2022 HEPATITIS B VACCINE (1 of 3 - 19+ 3-dose series) 11/19/2022 COVID-19 VACCINE (1 - season) 2024 DEPRESSION SCREENING 06/27/2024 INFLUENZA VACCINE (Season Ended) 2025 08/06/2019, 03/30/2016, 04/08/2014, Additional history exists ZOSTER VACCINE (1 of 2) 11/19/2053 HIB VACCINE Aged Out No longer eligi ble based on patient's age to complete this topic MENINGOCOCCAL GROUPS A/C/Y/W VACCINE Aged Out No longer eligible based on [...] Probe Negative Negative 10/18/2017 9:06 AM CDT [facility] GC Amplified Probe Negative Negative 10/18/2017 9:06 AM CDT [facility] Microbiology URINE / Unknown Collection / Unknown 10/17/2017 4:10 AM CDT 10/17/2017 4:15 AM CDT Narrative [facility] - 10/18/2017 9:06 AM CDT This test was developed and its performance characteristics determined by the [facility], [facility]. Female urine specimens tested by the [facility] [place] have not been cleared or approved by [...] method. Syed Win MD LAB - MICROBIOLOGY ORDERABLES Fi nal Result [facility] [address] [place], [place] [id number] [place] [address] from Last 3 Months or Most Recently Relevant to Health Maintenance Insurance [facility] Care Teams Solar Field Service Technician Relationship Specialty Start Date End Date Gwen Sofia MD [address] [place] [id number] PCP - General Pediatrics 10/17/17
--- OUTSIDE RECORDS SUMMARY | 2024-11-06 15:02 | XMS_ITS | Clinical Summary ---
Author Organization [facility] Address [address] [place] [address] Care Team Providers Care Joy Loader Name Role Phone None, Provider MD Primary [...] hours as needed. 15 tablet 5 Active Social History Tobacco Use Types Packs/Day Years [...] Comments Blood Pressure 105/66 07/04/2024 5:42 PM EXCELLENCE LEADER Pulse 108 07/04/2024 5:42 PM EXCELLENCE LEADER Temperature 36.7 C (98 F) 07/04/2024 12:59 PM EXCELLENCE LEADER Respiratory Rate 16 07/04/2024 5:42 PM EXCELLENCE LEADER Oxygen Saturation 97% 07/04/2024 5:42 PM EXCELLENCE LEADER Inhaled Oxygen Concentration - - Weight 52.2 kg (115 lb) 07/04/2024 12:59 PM EXCELLENCE LEADER Height 149.9 cm (4' 11 ) 07/04/2024 12:59 PM EXCELLENCE LEADER Body Mass Index 23.23 07/04/2024 12:59 PM EXCELLENCE LEADER Plan of Treatment Health Maintenance Due Date Last Done Comments Annual Physical 11/19/2006 HPV Vaccines (2 - 2-dose series) 07/07/2017 01/04/2017 Meningococcal B Vaccine (1 of 2 - Standard) 2019 Hepatitis C 11/19/2021 COVID-19 Vaccine ( - season) 2024 DTaP, Tdap and Td Vaccines (7 - Td or Tdap) 03/30/2026 03/30/2016, 02/06/2009, 05/27/2005, Additional history exists RSV Immunization or 60+ Years (1 - 1-dose 75+ series) 11/19/2078 Hepatitis B Vaccines Completed 09/07/2004, 06/08/2004, 03/25/2004, Additional history exists Pneumococcal Vaccine: Pediatrics (0 to 5 Years) and At-Risk Patients (6 to 49 Years) Aged Out 03/03/2005, 09/07/2004, 06/08/2004, Additional history exists No longer eligible based on patient's age to complete this topic Meningococcal Vaccine Completed 04/07/2022, 016 RSV Immunizations Under 20 Months Aged Out No longer eligible based on patient's age to complete this topic Care Teams Joy Loader Relationship Specialty Start Date End Date None, Provider, PCP - General UNKNOWN PHYSICIAN SPECIALTY 04/12/24
--- NOTE | 2024-11-06 15:05 | ED_ITS ---
HPI - Nausea/Vomiting/Diarrhea General Chief complaint: Nausea/Vomiting/Diarrhea <Robyn Mederos PA-C - Last Filed: 11/06/24 15:06> Stated complaint: N/V 6 months <Robyn Mederos PA-C - Last Filed: 11/06/24 15:06> Time Seen by Provider: 11/06/24 17:00 <Robyn Mederos PA-C - Last Filed: 11/06/24 15:06> Focused HPI: 18-year-old female who is currently 6 months presents to the emergency department for nausea and vomiting today. Patient states this has been uncomplicated. She is , her OBGYN is Dr. Filipe Plata. States she had some nausea and vomiting during the 1st trimester but has not had any nausea or vomiting since until today. She states the symptoms have been persistent which prompted her to come to the ED. She denies abdominal pain or cramping, vaginal bleeding or leakage of fluids, dysuria or hematuria, cough or congestion, headache, lower extremity edema, fever. GENERAL: Well-appearing, well-nourished, and in no acute distress. HEAD: Normocephalic, atraumatic. CHEST: Clear to auscultation. ?No respiratory distress. ABD: Gravid abdomen, abdomen soft and nontender. No rebound, guarding or rigidity. No CVA tenderness HEART: Regular rate and rhythm.? NEURO: ?Alert and oriented x3. Patient screened in triage and initial orders placed.? ?Additional care and disposition to be based upon?diagnostic testing and treatment. <Robyn Mederos PA-C - Last Filed: 11/06/24 15:06> Focused HPI: 18-year-old female who is currently 6 months presents to the emergency department for nausea and vomiting today. Patient states this has been uncomplicated. She is , her OBGYN is Dr. Filipe Plata. States she had some nausea and vomiting during the 1st trimester but has not had any nausea or vomiting since until today. She states the symptoms have been persistent which prompted her to come to the ED. She denies abdominal pain or cramping, vaginal bleeding or leakage of fluids, dysuria or hematuria, cough or congestion, headache, lower extremity edema, fever. GENERAL: Well-appearing, well-nourished, and in no acute distress. HEAD: Normocephalic, atraumatic. CHEST: Clear to auscultation. ?No respiratory distress. ABD: Gravid abdomen, abdomen soft and nontender. No rebound, guarding or rigidity. No CVA tenderness HEART: Regular rate and rhythm.? NEURO: ?Alert and oriented x3. Patient screened in triage and initial orders placed.? ?Additional care and disposition to be based upon?diagnostic testing and treatment. <BINA Thao Last Filed: 11/06/24 20:24> Source: patient <BINA Thao Last Filed: 11/06/24 20:24> Mode of arrival: ambulatory <BINA Thao Last Filed: 11/06/24 20:24> Limitations: no limitations <BINA Thao Last Filed: 11/06/24 20:24> History of Present Illness HPI Narrative: Agree with above HPI. Patient is currently 24 weeks gestation. PRECIOUS 02/21/25. Denies abdominal pain/vaginal bleeding. She also reports having slight cough, sore throat, congestion since Tuesday. States her S.O. has been sick as well with allergies recently. At the time of my evaluation, patient is feeling improved. Nausea is resolved. <BINA Thao Last Filed: 11/06/24 20:24> Related Data Allergies/Adverse reactions: Allergies Allergy/AdvReac Type Severity Reaction Status Date / Time No Known Allergies Allergy Mild Verified 11/06/24 15:04 <BINA Hawley Last Filed: 11/06/24 15:06> Review of Systems 2 Review of Systems: All systems reviewed & are unremarkable except as noted in HPI. <BINA Thao Last Filed: 11/06/24 20:24> All systems reviewed & are unremarkable except as noted in HPI and below < BINA Thao Last Filed: 11/06/24 20:24> Exam 2 Narrative: GENERAL: Well appearing, well-nourished, non-toxic, in no acute distress. HEAD: Normocephalic, atraumatic. ENT: Nasal quality to voice. RESPIRATORY: Airway patent, respirations nonlabored. Clear to auscultation bilaterally, no rales, rhonchi, wheezing. No significant focal lung sounds. CARDIOVASCULAR: Regular rate and rhythm without murmurs, rubs, or gallops. ABDOMINAL: Soft, uterus gravid above the umbilicus, nontender, nondistended. Normoactive BS. MUSCULOSKELETAL: Moves all extremities. No gross deformities. SKIN: Warm, dry, normal color. NEURO: A&O X3. Speech clear. Cranial nerves II-XII grossly intact. Steady gait. No ataxic movements. PSYCHIATRIC: Appropriate mood and affect. Normal interaction. <Bettye Carpenter PA-C - Last Filed: 11/06/24 20:24> Course Vital Signs Vital signs: Vital Signs Temperature 97.7 F 11/06/24 15:01 Pulse Rate 84 11/06/24 15:01 Respiratory Rate 20 11/06/24 15:01 Blood Pressure 119/69 11/06/24 15:01 Pulse Oximetry 98 11/06/24 15:01 Oxygen Delivery Room Air 11/06/24 15:01 Temperature 97.7 F 11/06/24 15:01 Pulse Rate 89 11/06/24 17:00 Respiratory Rate 16 11/06/24 16:49 Blood Pressure 104/75 11/06/24 17:00 Pulse Oximetry 100 11/06/24 16:49 Oxygen Delivery Room Air 11/06/24 15:01 <Robyn Mederos PA-C - Last Filed: 11/06/24 15:06> Vital Signs Temperature 97.7 F 11/06/24 15:01 Pulse Rate 84 11/06/24 15:01 Respiratory Rate 20 11/06/24 15:01 Blood Pressure 119/69 11/06/24 15:01 Pulse Oximetry 98 11/06/24 15:01 Oxygen Delivery Room Air 11/06/24 15:01 Temperature 97.7 F 11/06/24 15:01 Pulse Rate 89 11/06/24 17:00 Respiratory Rate 16 11/06/24 16:49 Blood Pressure 104/75 11/06/24 17:00 Pulse Oximetry 100 11/06/24 16:49 Oxygen Delivery Room Air 11/06/24 15:01 <Bettye Carpenter PA-C - Last Filed: 11/06/24 20:24> MDM - Nausea/Vomiting/Diarrhea MDM Narrative Medical decision making narrative: Patient presented to ED with nausea, vomiting, URI symptoms. Currently 24 weeks gestation. Denying abdominal pain or vaginal bleeding. Denies complications related to current . Vital signs are stable upon arrival. Patient is afebrile here. She was given fluids and Reglan after initial MSE in triage. At the time of my evaluation, patient is feeling much better. She is able to tolerate p.o. intake. Laboratory studies were notable for mild anemia of 10.5. This appears consistent with previous records. Stable electrolytes. Stable kidney function. UA consistent with infection. Will treat. Sent for culture. COVID testing resulted positive. FHT WNL. Discussed lab and imaging findings with patient. Again, patient is feeling improved. Feel she is safe for discharge home at this time with close outpatient follow-up with OBGYN. Will discharge with short course of Reglan for home, Keflex for UTI. Advised patient to continue [id number] cough and cold medicines, push fluids. Discussed very strict return precautions. She voiced understanding. In agreement with plan. Feels comfortable going home. Discharged in stable condition. <Bettye Carpenter PA-C - Last Filed: 11/06/24 20:24> Medical Records Attestation: I reviewed the patient's medical records. <Bettye Carpenter PA-C - Last Filed: 11/06/24 20:24> Lab Data Attestation: I reviewed the patient's lab results. <Bettye Carpenter PA-C - Last Filed: 11/06/24 20:24> Result diagrams: 11/06/24 15:54 11/06/24 15:54 <BINA Hawley Last Filed: 11/06/24 15:06> Labs: Lab Results 11/06/24 Range/Units 15:54 WBC 9.4 (4.5-10.0) K/mm3 RBC 3.36 L (4.2-5.4) M/mm3 Hgb 10.5 L (12.0-15.0) g/dL Hct 31.9 L (37.0-47.0) % MCV 94.9 (80-100) fl MCH 31.3 (26-34) pg MCHC 32.9 (32-36) g/dl RDW 12.8 (11.5-14.5) % Plt Count 201 (150-375) k/mm3 MPV 10.2 (7.4-10.4) fl Immature Gran % (Auto) 0.7 H (0-0.5) % Neut % (Auto) 62.5 (45.5-73.1) % Lymph % (Auto) 27.2 (18.3-44.2) % [place] % (Auto) 8.3 (2.6-8.5) % Eos % (Auto) 1.2 (0-4.4) % Baso % (Auto) 0.1 L (0.2-1.2) % Lymph # (Auto) 2.56 (0.9-3.2) K/mm3 [place] # (Auto) 0.8 H (0.1-0.6) K/mm3 Eos # (Auto) 0.1 (0-0.3) K/mm3 Baso # (Auto) 0.0 (0.0-0.1) K/mm3 Abs Immat Gran (auto) 0.07 H (0.00-0.031) K/mm3 Absolute Neuts (auto) 5.9 (1.3-6.7) K/mm3 Absolute Nucleated RBC 0.000 (0.0-0.012) K/mm3 Nucleated RBC % 0.0 (0.0-0.2) % Sodium 134 L (137-145) mmol/L Potassium 3.6 (3.4-5.0) mmol/L Chloride 104 (98-107) mmol/L Carbon Dioxide 24 (22-30) mmol/L Anion Gap 6 (4-12) mmol/L BUN 9 (7-17) mg/dL Creatinine 0.45 L (0.7-1.0) mg/dL Estim Creat Clear Calc Not Reportable Estimated GFR > 60 (59 - ) Glucose 83 (65-110) mg/dL Calcium 8.9 (8.4-10.2) mg/dL Total Bilirubin 0.2 (0.2-1.3) mg/dL AST 25 (14-36) U/L ALT 24 (6-35) U/L Alkaline Phosphatase 67 (38-126) U/L Total Protein 7.0 (6.3-8.2) g/dL Albumin 3.6 (3.5-5.1) g/dL Lipase 107 (23-300) U/L Urine Color Yellow (Yellow) Urine Appearance Cloudy H (Clear) Urine pH 7.5 (5.0-9.0) Ur Specific [place] 1.012 (1.001-1.035) Urine Protein Negative (Negative) mg/dL Urine Glucose (UA) Negative (Negative) mg/dL Urine Ketones Negative (Negative) mg/dL Ur Blood (Man) Negative (Negative) Urine Nitrate Positive H (Negative) Urine Bilirubin Negative (Negative) Urine Urobilinogen 0.2 (<2.0) mg/dL Leukocyte Esterase Rfl 2+ H (Negative) TESSY/UL Urine RBC 0-2 (0-2) /hpf Urine WBC 21-50 H (0-3) /hpf Ur Squamous Epith Cells Few (Few) /hpf Urine Bacteria 4+ H /hpf Urine Casts 0-2 Influenza A (RT-PCR) Negative (Negative) Influenza B (RT-PCR) Negative (Negative) RSV (RT-PCR) Negative (Negative) SARS-CoV-2 RNA (RT-PCR) Positive A (Negative) <Robyn Mederos PA-C - Last Filed: 11/06/24 15:06> Lab Results 11/06/24 Range/Units 15:54 WBC 9.4 (4.5-10.0) K/mm3 RBC 3.36 L (4.2-5.4) M/mm3 Hgb 10.5 L (12.0-15.0) g/dL Hct 31.9 L (37.0-47.0) % MCV 94.9 (80-100) fl MCH 31.3 (26-34) pg MCHC 32.9 (32-36) g/dl RDW 12.8 (11.5-14.5) % Plt Count 201 (150-375) k/mm3 MPV 10.2 (7.4-10.4) fl Immature Gran % (Auto) 0.7 H (0-0.5) % Neut % (Auto) 62.5 (45.5-73.1) % Lymph % (Auto) 27.2 (18.3-44.2) % [place] % (Auto) 8.3 (2.6-8.5) % Eos % (Auto) 1.2 (0-4.4) % Baso % (Auto) 0.1 L (0.2-1.2) % Lymph # (Auto) 2.56 (0.9-3.2) K/mm3 [place] # (Auto) 0.8 H (0.1-0.6) K/mm3 Eos # (Auto) 0.1 (0-0.3) K/mm3 Baso # (Auto) 0.0 (0.0-0.1) K/mm3 Abs Immat Gran (auto) 0.07 H (0.00-0.031) K/mm3 Absolute Neuts (auto) 5.9 (1.3-6.7) K/mm3 Absolute Nucleated RBC 0.000 (0.0-0.012) K/mm3 Nucleated RBC % 0.0 (0.0-0.2) % Sodium 134 L (137-145) mmol/L Potassium 3.6 (3.4-5.0) mmol/L Chloride 104 (98-107) mmol/L Carbon Dioxide 24 (22-30) mmol/L Anion Gap 6 (4-12) mmol/L BUN 9 (7-17) mg/dL Creatinine 0.45 L (0.7-1.0) mg/dL Estim Creat Clear Calc Not Reportable Estimated GFR > 60 (59 - ) Glucose 83 (65-110) mg/dL Calcium 8.9 (8.4-10.2) mg/dL Total Bilirubin 0.2 (0.2-1.3) mg/dL AST 25 (14-36) U/L ALT 24 (6-35) U/L Alkaline Phosphatase 67 (38-126) U/L Total Protein 7.0 (6.3-8.2) g/dL Albumin 3.6 (3.5-5.1) g/dL Lipase 107 (23-300) U/L Urine Color Yellow (Yellow) Urine Appearance Cloudy H (Clear) Urine pH 7.5 (5.0-9.0) Ur Specific [place] 1.012 (1.001-1.035) Urine Protein Negative (Negative) mg/dL Urine Glucose (UA) Negative (Negative) mg/dL Urine Ketones Negative (Negative) mg/dL Ur Blood (Man) Negative (Negative) Urine Nitrate Positive H (Negative) Urine Bilirubin Negative (Negative) Urine Urobilinogen 0.2 (<2.0) mg/dL Leukocyte Esterase Rfl 2+ H (Negative) TESSY/UL Urine RBC 0-2 (0-2) /hpf Urine WBC 21-50 H (0-3) /hpf Ur Squamous Epith Cells Few (Few) /hpf Urine Bacteria 4+ H /hpf Urine Casts 0-2 Influenza A (RT-PCR) Negative (Negative) Influenza B (RT-PCR) Negative (Negative) RSV (RT-PCR) Negative (Negative) SARS-CoV-2 RNA (RT-PCR) Positive A (Negative) <Bettye Carpenter PA-C - Last Filed: 11/06/24 20:24> Discharge Plan Discharge Clinical Impression: COVID-19, 24 weeks gestation of UTI (urinary tract infection) during Qualifiers: Trimester: second trimester Qualified Code(s): O23.42 - Unspecified infection of urinary tract in , second trimester Nausea and vomiting Qualifiers: Vomiting type: unspecified Qualified Code(s): R11.2 - Nausea with vomiting, unspecified <Robyn Mederos PA-C - Last Filed: 11/06/24 15:06> Patient Disposition: Home <BINA Hawley Last Filed: 11/06/24 15:06> Condition: Stable <BINA Hawley Last Filed: 11/06/24 15:06> Instructions: Antibiotic Form, Dehydration (ED), Acute Nausea and Vomiting (ED), Urinary Tract Infection in (ED), How to Recover from COVID-19 at Home (ED) <BINA Hawley Last Filed: 11/06/24 15:06> Additional Instructions: You were diagnosed with COVID-19 today. Isolate at home as you are contagious. It is recommended that you quarantine for at least 5 days from symptom onset. You were also diagnosed with a urinary tract infection. Take antibiotics as prescribed. Stay well-hydrated at home. Recommend electrolyte rich fluids, Gatorade, Pedialyte, body armor. Utilize Reglan as needed for nausea. Recommend Tylenol for discomfort and/or fevers. Recommend [id number] cough and cold medicines for symptom relief - Delsym, Mucinex, Robitussin (these are safe for ). Follow with your TRANSPORTATION MANAGER for further evaluation. Return to the ED if you experience chest pain, difficulty breathing, unable to keep down food or drink, severe pain, abdominal pain, vaginal bleeding, or any other symptoms of concern. <Robyn Mederos PA-C - Last Filed: 11/06/24 15:06> Patient Language: Thai <BINA Hawley Last Filed: 11/06/24 15:06> Prescriptions: New metoclopramide HCl 5 mg tablet 5 mg PO Q6H PRN (Reason: nausea and vomiting) Qty: 10 0RF cephalexin 500 mg capsule 500 mg PO Q6H 7 Days Qty: 28 0RF No Action cefpodoxime 200 mg tablet 200 mg PO Q12H 14 Days Qty: 28 0RF Rx Instructions: must administer with a meal/food <Robyn Mederos PA-C - Last Filed: 11/06/24 15:06> Follow-up/Referrals: Robert Agarwal MD [Primary Care Provider] - <BINA Hawley Last Filed: 11/06/24 15:06> Stand Alone Forms: Work/School Release IP <Robyn Mederos PA-C - Last Filed: 11/06/24 15:06> Time of Disposition: 18:16 <BINA Hawley Last Filed: 11/06/24 15:06> 18:16 <Bettye Carpenter PA-C - Last Filed: 11/06/24 20:24>
[2024-11-06 16:05] LABS: Basophils Percent Auto 0.1 % (0.2-1.2); Eosinophils Absolute Auto 0.1 K/mm3 (0-0.3); Eosinophils Percent Auto 1.2 % (0-4.4); Hematocrit 31.9 % (37.0-47.0); Hemoglobin 10.5 g/dL (12.0-15.0); Immature Granulocyte Absolute 0.07 K/mm3 (0.00-0.031); Immature Granulocyte Percent A 0.7 % (0-0.5); Lymphocytes Absolute Auto 2.56 K/mm3 (0.9-3.2); Lymphocytes Percent Auto 27.2 % (18.3-44.2); Mean Corpuscular HGB Conc 32.9 g/dl (32-36); Mean Corpuscular Hemoglobin 31.3 pg (26-34); Mean Corpuscular Volume 94.9 fl (80-100); Mean Platelet Volume 10.2 fl (7.4-10.4); Monocytes Absolute Auto 0.8 K/mm3 (0.1-0.6); Monocytes Percent Auto 8.3 % (2.6-8.5); Neutrophils Absolute Auto 5.9 K/mm3 (1.3-6.7); Neutrophils Percent Auto 62.5 % (45.5-73.1); Platelet Count Result 201 k/mm3 (150-375); Red Blood Count 3.36 M/mm3 (4.2-5.4); Red Cell Distribution Width 12.8 % (11.5-14.5); White Blood Count 9.4 K/mm3 (4.5-10.0)
[2024-11-06 16:08] LABS: Add Urine Microscopic? YES; Appearance Urine Cloudy (Clear); Bacteria Urine 4+ /hpf; Bilirubin Urine Negative (Negative); Blood Urine Negative (Negative); Color Urine Yellow (Yellow); Glucose Urine UA Negative (Negative); Ketones Urine Negative (Negative); Leukocyte Esterase Ur 2+ LEU/UL (Negative); Nitrate Urine Positive (Negative); Non Pathogenic Casts 0-2; Protein Urine Negative (Negative); RBC Urine 0-2 /hpf (0-2); Specific Grav Ur 1.012 (1.001-1.035); Squamous Epithelial Cell Urine Few /hpf (Few); Urobilinogen Urine 0.2 mg/dL (<2.0); WBC Urine 21-50 /hpf (0-3); pH Urine 7.5 (5.0-9.0)
[2024-11-06] MEDS: METOCLOPRAMIDE HCL INJ 10 MG/2 ML VIAL IV PUSH (16:09)
[2024-11-06] MEDS: SODIUM CHLORIDE 0.9% IV 1,000 ML 999 ML IV CONT (16:09)
[2024-11-06 16:13] LABS: Alanine Aminotransferase 24 U/L (6-35); Albumin Level 3.6 g/dL (3.5-5.1); Alkaline Phosphatase 67 U/L (38-126); Anion Gap 6 mmol/L (4-12); Aspartate Amino Transferase 25 U/L (14-36); Bilirubin,Total 0.2 mg/dL (0.2-1.3); Blood Urea Nitrogen 9 mg/dL (7-17); Calcium 8.9 mg/dL (8.4-10.2); Carbon Dioxide 24 mmol/L (22-30); Chloride 104 mmol/L (98-107); Estimated Glomerular Filt Rate > 60; Glucose 83 mg/dL (65-110); Lipase 107 U/L (23-300); Potassium 3.6 mmol/L (3.4-5.0); Sodium 134 mmol/L (137-145)
[2024-11-06 16:44] LABS: Influenza A QL RT-PCR Negative (Negative); Influenza B QL RT-PCR Negative (Negative); RSV RNA, RT-PCR Negative (Negative); SARS-CoV-2 RNA PCR Positive (Negative)
[2024-11-06 16:49] VITALS: BP 103/65; PULSE 85; RESP 16; O2SAT 100
[2024-11-06 16:50] VITALS: BP 103/65; PULSE 89
[2024-11-06 16:55] VITALS: BP 104/74; PULSE 84
[2024-11-06 17:00] VITALS: BP 104/75; PULSE 89
[2024-11-06] MEDS: CEPHALEXIN 500 MG CAPSULE PO (18:23)
== END 2024-11-06 18:29 | disposition home or self-care (01) ==
PROVIDERS: Physician Assistant; Emergency Provider Physician Assistant; PCP Obstetrics & Gynecology
DX: O98.512 Other viral diseases complicating pregnancy, second trimester (principal); U07.1 COVID-19; Z3A.24 24 weeks gestation of pregnancy; O23.42 Unspecified infection of urinary tract in pregnancy, second trimester; O21.0 Mild hyperemesis gravidarum
CPT/HCPCS: 36415; 80053; 81001; 83690; 85025; 87086; 87186; 87637; 96361; 96374; 99284; A9270; J2765; J7030

== ENCOUNTER 2025-02-03 16:46 | Emergency (ER) | payer BC, MEDICAID, SELFPAY ==
--- OUTSIDE RECORDS SUMMARY | 2025-02-03 16:50 | XMS_ITS | Clinical Summary ---
Author Organization [facility] Address [address] [place] [address] Care Team Providers Care Gas Operator Name Role Phone Gwen Sofia MD Primary Care Provider Source Comments [facility],non-owned Affiliates and Associated Physician Practices is amultiple site organization consisting of ambulatory clinics and hospital sitesin [place], [place], [place] and [place]. This disclosure is being madepursuant to the Care Everywhere program and may not contain all information available regarding this patient. Last updated 18.[facility] Allergies No known active allergies Medications * [...] 08/06/2019 Assessment & Plan (08/06/2019 1:56 PM CENTRIFUGAL EXTRACTOR OPERATOR): Assessment: Symptoms likely represent vocal cord dysfunction. [...] Comments Blood Pressure 90/60 08/21/2021 8:40 AM CENTRIFUGAL EXTRACTOR OPERATOR Pulse 84 08/21/2021 8:40 AM CENTRIFUGAL EXTRACTOR OPERATOR Temperature 36.7 C (98 F) 08/21/2021 8:40 AM CENTRIFUGAL EXTRACTOR OPERATOR Respiratory Rate 18 08/21/2021 8:40 AM CENTRIFUGAL EXTRACTOR OPERATOR Oxygen Saturation 99% 08/21/2021 8:40 AM CENTRIFUGAL EXTRACTOR OPERATOR Inhaled Oxygen Concentration - - Weight 48.6 kg (107 lb 2.3 oz) 08/18/2021 8:29 P M CENTRIFUGAL EXTRACTOR OPERATOR Height 149.9 cm (4' 11) 08/18/2021 8:29 PM CENTRIFUGAL EXTRACTOR OPERATOR Body Mass Index 21.64 08/18/2021 8:29 PM CENTRIFUGAL EXTRACTOR OPERATOR Plan of Treatment Health Maintenance Due Date [...] season) 2024 DEPRESSION SCREENING 06/27/2024 INFLUENZA VACCINE (#1) 2025 , 03/30/2016, 04/08/2014, Additional history exists ZOSTER VACCINE [...] Probe Negative Negative 10/18/2017 9:06 AM CDT [facility] GC Amplified Probe Negative Negative 10/18/2017 9:06 AM CDT [facility] Microbiology URINE / Unknown Collection / Unknown 10/17/2017 4:10 AM CDT 10/17/2017 4:15 AM CDT Narrative [facility] - 10/18/2017 9:06 AM CDT This test was developed and its performance characteristics determined by the [facility], [facility]. Female urine specimens tested by the [facility] [place] have not been cleared or approved by [...] LAB - MICROBIOLOGY ORDERABLES Fi nal Result [facility] [address] [place] [address], [facility] [phone] from Last 3 Months or Most Recently Relevant to Health Maintenance Insurance [facility] Care Teams Gas Operator Relationship Specialty Start Date End Date Gwen Sofia MD [address] [place] [id number] PCP - General Pediatrics 10/17/17
--- OUTSIDE RECORDS SUMMARY | 2025-02-03 16:50 | XMS_ITS | Clinical Summary ---
Author Organization [facility] Address [address] [place] [address] Care Team Providers Care Lamination Technician Name Role Phone None, Provider MD Primary [...] Comments Blood Pressure 105/66 07/04/2024 5:42 PM COOPERER Pulse 108 07/04/2024 5:42 PM COOPERER Temperature 36.7 C (98 F) 07/04/2024 12:59 PM COOPERER Respiratory Rate 16 07/04/2024 5:42 PM COOPERER Oxygen Saturation 97% 07/04/2024 5:42 PM COOPERER Inhaled Oxygen Concentration - - Weight 52.2 kg (115 lb) 07/04/2024 12:59 PM COOPERER Height 149.9 cm (4' 11) 07/04/2024 12:59 PM COOPERER Body Mass Index 23.23 07/04/2024 12:59 PM COOPERER Plan of Treatment Health Maintenance Due Date Last Done Comments Annual Physical 11/19/2006 HPV Vaccines (2 - 2-dose series) 07/07/2017 01/04/2017 Meningococcal B Vaccine (1 of 2 - Standard) 2019 Cervical Cancer Screening Pap Smear (Age 21 to 29) Every 3 Years 10/17/2020 10/17/2017 Cervical Cancer Screening 10/17/2020 Hepatitis C 11/19/2021 COVID-19 Vaccine ( - [...] age to complete this topic Care Teams Lamination Technician Relationship Specialty Start Date End Date None, Provider, MD PCP - General UNKNOWN PHYSICIAN SPECIALTY 04/12/24
[2025-02-03 17:01] VITALS: BP 109/64; PULSE 108; RESP 20; TEMP 36.4; O2SAT 99
--- OUTSIDE RECORDS SUMMARY | 2025-02-03 18:42 | XMS_ITS | Clinical Summary ---
Author Organization [facility] Address [address] [place] [address] Care Team Providers Care Community Nutrition Educator Name Role Phone Gwen Sofia MD Primary Care Provider Source Comments [facility],non-owned Affiliates and Associated Physician Practices is amultiple site organization consisting of ambulatory clinics and hospital sitesin [place], [place], [place] and [place]. This disclosure is being madepursuant to the Care Everywhere program and may not contain all information available regarding this patient. Last updated 18.[facility] Allergies No known active allergies Medications * [...] 08/06/2019 Assessment & Plan (08/06/2019 1:56 PM PURSE SEINER): Assessment: Symptoms likely represent vocal cord dysfunction. [...] Comments Blood Pressure 90/60 08/21/2021 8:40 AM PURSE SEINER Pulse 84 08/21/2021 8:40 AM PURSE SEINER Temperature 36.7 C (98 F) 08/21/2021 8:40 AM PURSE SEINER Respiratory Rate 18 08/21/2021 8:40 AM PURSE SEINER Oxygen Saturation 99% 08/21/2021 8:40 AM PURSE SEINER Inhaled Oxygen Concentration - - Weight 48.6 kg (107 lb 2.3 oz) 08/18/2021 8:29 P M PURSE SEINER Height 149.9 cm (4' 11) 08/18/2021 8:29 PM PURSE SEINER Body Mass Index 21.64 08/18/2021 8:29 PM PURSE SEINER Plan of Treatment Health Maintenance Due Date [...] Probe Negative Negative 10/18/2017 9:[address] [facility] GC Amplified Probe Negative Negative 10/18/2017 9:[address] [facility] Microbiology URINE / Unknown Collection / Unknown 10/17/2017 4:10 AM CDT 10/17/2017 4:[address] [facility] - 10/18/2017 9:06 AM CDT This test was developed and its performance characteristics determined by the [facility], [facility]. Female urine specimens tested by the [facility] [place] have not been cleared or approved by [...] LAB - MICROBIOLOGY ORDERABLES Fi nal Result [facility] [address] [place] [address], [facility] [phone] from Last 3 Months or Most Recently Relevant to Health Maintenance Insurance [facility] Care Teams Community Nutrition Educator Relationship Specialty Start Date End Date Gwen Sofia MD [address] [place] [id number] PCP - General Pediatrics 10/17/17
--- OUTSIDE RECORDS SUMMARY | 2025-02-03 18:42 | XMS_ITS | Clinical Summary ---
Author Organization [facility] Address [address] [place] [address] Care Team Providers Care Forensic Technician Name Role Phone None, Provider MD [...] Comments Blood Pressure 105/66 07/04/2024 5:42 PM OCC THERAPY ASST Pulse 108 07/04/2024 5:42 PM OCC THERAPY ASST Temperature 36.7 C (98 F) 07/04/2024 12:59 PM OCC THERAPY ASST Respiratory Rate 16 07/04/2024 5:42 PM OCC THERAPY ASST Oxygen Saturation 97% 07/04/2024 5:42 PM OCC THERAPY ASST Inhaled Oxygen Concentration - - Weight 52.2 kg (115 lb) 07/04/2024 12:59 PM OCC THERAPY ASST Height 149.9 cm (4' 11) 07/04/2024 12:59 PM OCC THERAPY ASST Body Mass Index 23.23 07/04/2024 12:59 PM OCC THERAPY ASST Plan of Treatment Health Maintenance Due Date [...] age to complete this topic Care Teams Forensic Technician Relationship Specialty Start Date End Date None, Provider, MD PCP - General UNKNOWN PHYSICIAN SPECIALTY 04/12/24
[2025-02-03] MEDS: LACTATED RINGERS 1,000 ML 999 ML IV CONT (18:50)
[2025-02-03 18:58] LABS: Hematocrit 30.7 % (37.0-47.0); Hemoglobin 9.7 g/dL (12.0-15.0); Immature Granulocyte Percent A 1.1 % (0-0.5); Lymphocytes Absolute Auto 2.68 K/mm3 (0.9-3.2); Mean Corpuscular HGB Conc 31.6 g/dl (32-36); Mean Corpuscular Hemoglobin 26.9 pg (26-34); Mean Corpuscular Volume 85.0 fl (80-100); Nucleated Red Blood Cells Absolute Auto 0.000 K/mm3 (0.0-0.012); Nucleated Red Blood Cells Perc 0.0 % (0.0-0.2); Platelet Count Result 241 k/mm3 (150-375); Red Blood Count 3.61 M/mm3 (4.2-5.4); White Blood Count 11.2 K/mm3 (4.5-10.0)
--- NOTE | 2025-02-03 19:06 | ED_ITS ---
HPI - General Adult General Chief complaint: Nausea/Vomiting/Diarrhea Stated complaint: vomiting blood Time Seen by Provider: 02/03/25 18:31 History of Present Illness HPI narrative: 19-year-old female presented to the emergency department for evaluation for concern for bloody emesis this morning. Patient had 2 episodes of emesis this morning 1 was rather forceful. She states on the 2nd emesis she did have some blood clots. Patient reports he did have some emesis after lunch and it contained no blood. Patient denies any abdominal pain or chest pain. Patient is in no distress at time of evaluation. Patient is approximately 34 weeks does follow-up with Dr. blane ervin. Related Data Allergies Allergy/AdvReac Type Severity Reaction Status Date / Time No Known Allergies Allergy Mild Verified 02/03/25 17:05 Review of Systems 2 Review of Systems: All systems reviewed & are unremarkable except as noted in HPI and below Exam 2 Narrative: APPEARANCE: Well appearing, no pain, no distress, well-nourished. HEAD: normocephalic, atraumatic. EYES: PERRLA/EOMI, conjunctivae clear. NOSE: Normal no drainage EARS:TMS clear with good light reflex. THROAT: Pharynx clear, no exudate. NECK: Supple. No adenopathy, no masses. RESPIRATORY: Airway patent, respirations nonlabored. Clear to auscultation bilaterally, no rales, rhonchi, wheezing. CARDIOVASCULAR: Regular rate and rhythm without murmurs rubs or gallops. ABDOMINAL: Gravid abdomen, soft nontender MUSCULOSKELETAL: Moves all extremities. Strength/ROM intact, No edema, No calf tenderness. NEURO: Alert. Cranial nerves II through XII intact. SKIN: Warm, dry. Normal Color Course Vital Signs Vital signs: Vital Signs Temperature 97.6 F 02/03/25 17:01 Pulse Rate 108 H 02/03/25 17:01 Respiratory Rate 20 02/03/25 17:01 Blood Pressure 109/64 02/03/25 17:01 Pulse Oximetry 99 02/03/25 17:01 Oxygen Delivery Room Air 02/03/25 17:01 Temperature 97.6 F 02/03/25 17:01 Pulse Rate 100 02/03/25 19:22 Respiratory Rate 17 02/03/25 19:22 Blood Pressure 105/73 02/03/25 19:22 Pulse Oximetry 100 02/03/25 19:22 Oxygen Delivery Room Air 02/03/25 17:01 Medical Decision Making MDM Narrative Medical decision making narrative: 19-year-old female that is 34 weeks present to the emergency department for evaluation for an episode of hematemesis this morning. Patient has had no further emesis since this afternoon. Patient's most recent emesis had no hematemesis. Patient is afebrile but does have a leukocytosis of 11.12 and hemoglobin of 9.7 this is similar to the patient's baseline. Patient has no acute abnormalities on her CMP. UA was concerning for urinary tract infection since it was leukocyte esterase positive high white blood cells many squamous cells and +4 bacteria. Patient denies any urinary symptoms. Urine culture was ordered. The provided Reglan for home. Patient was encouraged to have close follow-up with primary care physician and began. All questions concerns were addressed. Differential Diagnosis Differential Diagnosis: Hailey Hoover tear, [place], gastritis, UTI, anemia Vital Signs Vital Signs: Vital Signs Temperature 97.6 F 02/03/25 17:01 Pulse Rate 108 H 02/03/25 17:01 Respiratory Rate 20 02/03/25 17:01 Blood Pressure 109/64 02/03/25 17:01 Pulse Oximetry 99 02/03/25 17:01 Oxygen Delivery Room Air 02/03/25 17:01 Temperature 97.6 F 02/03/25 17:01 Pulse Rate 100 02/03/25 19:22 Respiratory Rate 17 02/03/25 19:22 Blood Pressure 105/73 02/03/25 19:22 Pulse Oximetry 100 02/03/25 19:22 Oxygen Delivery Room Air 02/03/25 17:01 Lab Data Lab results reviewed: Yes I reviewed the patient's lab results. 02/03/25 18:49 02/03/25 18:49 Labs: Lab Results 02/03/25 Range/Units 18:49 WBC 11.2 H (4.5-10.0) K/mm3 RBC 3.61 L (4.2-5.4) M/mm3 Hgb 9.7 L (12.0-15.0) g/dL Hct 30.7 L (37.0-47.0) % MCV 85.0 (80-100) fl MCH 26.9 (26-34) pg MCHC 31.6 L (32-36) g/dl RDW 14.2 (11.5-14.5) % Plt Count 241 (150-375) k/mm3 MPV 10.4 (7.4-10.4) fl Immature Gran % (Auto) 1.1 H (0-0.5) % Neut % (Auto) 67.8 (45.5-73.1) % Lymph % (Auto) 24.0 (18.3-44.2) % [place] % (Auto) 5.7 (2.6-8.5) % Eos % (Auto) 1.2 (0-4.4) % Baso % (Auto) 0.2 (0.2-1.2) % Lymph # (Auto) 2.68 (0.9-3.2) K/mm3 [place] # (Auto) 0.6 (0.1-0.6) K/mm3 Eos # (Auto) 0.1 (0-0.3) K/mm3 Baso # (Auto) 0.0 (0.0-0.1) K/mm3 Abs Immat Gran (auto) 0.12 H (0.00-0.031) K/mm3 Absolute Neuts (auto) 7.6 H (1.3-6.7) K/mm3 Absolute Nucleated RBC 0.000 (0.0-0.012) K/mm3 Nucleated RBC % 0.0 (0.0-0.2) % Sodium 134 L (137-145) mmol/L Potassium 3.5 (3.4-5.0) mmol/L Chloride 105 (98-107) mmol/L Carbon Dioxide 22 (22-30) mmol/L Anion Gap 7 (4-12) mmol/L BUN 4 L D (7-17) mg/dL Creatinine 0.47 L (0.7-1.0) mg/dL Estim Creat Clear Calc Not Reportable Estimated GFR > 60 (59 - ) Glucose 87 (65-110) mg/dL Calcium 8.5 (8.4-10.2) mg/dL Total Bilirubin 0.3 (0.2-1.3) mg/dL AST 24 (14-36) U/L ALT 13 (6-35) U/L Alkaline Phosphatase 162 H (38-126) U/L Total Protein 7.1 (6.3-8.2) g/dL Albumin 3.6 (3.5-5.1) g/dL Urine Color Yellow (Yellow) Urine Appearance Cloudy H (Clear) Urine pH 8.5 (5.0-9.0) Ur Specific [place] 1.013 (1.001-1.035) Urine Protein Trace (Negative) mg/dL Urine Glucose (UA) Negative (Negative) mg/dL Urine Ketones Negative (Negative) mg/dL Ur Blood (Man) Negative (Negative) Urine Nitrate Negative (Negative) Urine Bilirubin Negative (Negative) Urine Urobilinogen 0.2 (<2.0) mg/dL Add Ur Microanalysis Reviewed Leukocyte Esterase Rfl 1+ H (Negative) TESSY/UL Urine RBC 0-2 (0-2) /hpf Urine WBC 21-50 H (0-3) /hpf Ur Squamous Epith Cells Many H (Few) /hpf Urine Bacteria 4+ H /hpf Urine Casts 0-2 Discharge Plan Discharge Clinical Impression: Hematemesis Patient Disposition: Home Condition: Stable Instructions: Antibiotic Form, Acute Nausea and Vomiting (ED), Hematemesis (ED) Additional Instructions: Reglan as needed for nausea control. Drink plenty of fluids. Have close follow-up with OB Gyne. You have a urine culture pending, you may receive a call next 24-48 hours to start antibiotics. Patient Language: [place] Prescriptions: New metoclopramide HCl [Reglan] 10 mg tablet 10 mg PO Q6H PRN (Reason: nausea and vomiting) Qty: 14 0RF No Action metoclopramide HCl 5 mg tablet 5 mg PO Q6H PRN (Reason: nausea and vomiting) Qty: 10 0RF cephalexin 500 mg capsule 500 mg PO Q6H 7 Days Qty: 28 0RF cefpodoxime 200 mg tablet 200 mg PO Q12H 14 Days Qty: 28 0RF Rx Instructions: must administer with a meal/food Follow-up/Referrals: Robert Agarwal MD [Primary Care Provider] -
[2025-02-03 19:09] LABS: Alanine Aminotransferase 13 U/L (6-35); Albumin Level 3.6 g/dL (3.5-5.1); Alkaline Phosphatase 162 U/L (38-126); Anion Gap 7 mmol/L (4-12); Aspartate Amino Transferase 24 U/L (14-36); Bilirubin,Total 0.3 mg/dL (0.2-1.3); Blood Urea Nitrogen 4 mg/dL (7-17); Calcium 8.5 mg/dL (8.4-10.2); Carbon Dioxide 22 mmol/L (22-30); Chloride 105 mmol/L (98-107); Estimated Glomerular Filt Rate > 60; Glucose 87 mg/dL (65-110); Potassium 3.5 mmol/L (3.4-5.0); Sodium 134 mmol/L (137-145); Total Protein 7.1 g/dL (6.3-8.2)
[2025-02-03 19:16] LABS: Add Urine Microscopic? YES; Appearance Urine Cloudy (Clear); Glucose Urine UA Negative (Negative); Leukocyte Esterase Ur 1+ LEU/UL (Negative); Need Manual Microscopic Reviewed; Nitrate Urine Negative (Negative); Non Pathogenic Casts 0-2; Specific Grav Ur 1.013 (1.001-1.035)
[2025-02-03 19:22] VITALS: BP 105/73; PULSE 100; RESP 17; O2SAT 100
--- NOTE | 2025-02-03 19:22 | PC.NURSE ---
Report received from REYNALDO Gutierrez. Assumed care of patient at this time.
[2025-02-03] MEDS: METOCLOPRAMIDE HCL 10 MG TABLET PO (20:03)
[2025-02-03 20:07] VITALS: BP 111/71; PULSE 100; RESP 16; O2SAT 99
== END 2025-02-03 20:08 | disposition home or self-care (01) ==
PROVIDERS: Emergency Provider Emergency Medicine; PCP Obstetrics & Gynecology
DX: O99.891 Other specified diseases and conditions complicating pregnancy (principal); K92.0 Hematemesis; Z3A.34 34 weeks gestation of pregnancy
CPT/HCPCS: 36415; 80053; 81001; 85025; 96360; 99283; A9270; J7120

== ENCOUNTER 2025-02-21 06:16 | Inpatient (IN) | payer BC, MEDICAID, SELFPAY ==
[2025-02-21] VITALS (179 sets, daily range): BP systolic 78–138; BP diastolic 44–104; PULSE 40–151; TEMP 36.1–36.8; O2SAT 82–100; BMI 30.5
[2025-02-21 07:00] LABS: Hematocrit 29.4 % (37.0-47.0); Hemoglobin 9.1 g/dL (12.0-15.0); Immature Granulocyte Percent A 0.7 % (0-0.5); Lymphocytes Absolute Auto 2.80 K/mm3 (0.9-3.2); Mean Corpuscular HGB Conc 31.0 g/dl (32-36); Mean Corpuscular Hemoglobin 26.1 pg (26-34); Mean Corpuscular Volume 84.2 fl (80-100); Nucleated Red Blood Cells Absolute Auto 0.000 K/mm3 (0.0-0.012); Nucleated Red Blood Cells Perc 0.0 % (0.0-0.2); Platelet Count Result 221 k/mm3 (150-375); Red Blood Count 3.49 M/mm3 (4.2-5.4); White Blood Count 9.0 K/mm3 (4.5-10.0)
[2025-02-21] MEDS: LACTATED RINGERS 1,000 ML 125 ML IV CONT ×3 (07:11→16:58)
[2025-02-21] MEDS: OXYTOCIN 30 UNITS/NS 500 ML 30 UNITS/500 ML BAG 6 UNITS IV CONT (07:11)
[2025-02-21] MEDS: AMPICILLIN SODIUM 2 GM in SODIUM CHLORIDE 0.9% IV 100 ML 200 ML IVPB (07:12)
[2025-02-21] MEDS: fentaNYL CITRATE INJ (*CRX) 100 MCG/2 ML VIAL IV PUSH ×2 (08:36→11:16)
--- NOTE | 2025-02-21 08:41 | PM.IMHP ---
H&P: HPI History of Present Illness Date/Time: 02/21/25 08:41 Chief Complaint: Induction at term Narrative: This is a 19-year-old 1 para 0 whose last menstrual period was 05/17/2024, EDC is 02/21/2025, presents at 417 weeks gestation for induction of labor. She had an unremarkable . She passed her diabetic screen she is positive for group B strep and is being prophylaxed for such Review of Systems Review of Systems: All systems reviewed & are unremarkable except as noted in HPI and below PMFSH Family History Family History Sibling Epilepsy Social History Social History Substance use: never Spiritual care concerns: No Meds Home Medications and Allergies Home Medications ?Medication ?Instructions ?Recorded ?Confirmed ?Type vit no.95-ferrous 1 tablet PO DAILY 02/09/25 02/09/25 History fumarate 28 mg-folic acid 800 mcg tablet () Allergies Allergy/AdvReac Type Severity Reaction Status Date / Time No Known Allergies Allergy Mild Verified 02/09/25 15:17 Vital Signs Vital Signs - 24 hr 02/21/25 06:56 02/21/25 07:01 02/21/25 07:16 Pulse Rate 83 86 83 Blood Pressure 120/86 119/87 121/83 02/21/25 07:31 02/21/25 08:01 02/21/25 08:16 Pulse Rate 82 96 84 Blood Pressure 127/76 125/88 102/86 02/21/25 08:31 Pulse Rate 84 Blood Pressure 118/89 Exam Const: General: cooperative, healthy appearing, comfortable and average body habitus Orientation/consciousness: oriented to person, oriented to place and oriented to time HENMT: Head: normal to inspection Resp: Effort & Inspection: normal respiratory effort Cardio: Rate: regular rate Rhythm: regular rhythm Heart sounds: S1 normal heart sound present and S2 normal heart sound present GI: Inspection: normal to inspection (Gravid soft uterus) : External Female Exam: normal external appearance Speculum Exam - Vagina: normal appearance of the vagina Speculum Exam - Cervix: normal appearance of the cervix (Cervix 2/75/-1. AROM clear. FHT is reassuring) H&P: Results Labs Labs: Short CBC 02/21/25 Range/Units 06:39 WBC 9.0 (4.5-10.0) K/mm3 Hgb 9.1 L (12.0-15.0) g/dL Hct 29.4 L (37.0-47.0) % Plt Count 221 (150-375) k/mm3 Assessment and Plan Assessment and plan (1) Term : Code(s): Z34.90 - Encounter for supervision of normal , unspecified, unspecified trimester Status: Acute (2) Positive testing for group B Streptococcus: Code(s): B95.1 - Streptococcus, group B, as the cause of diseases classified elsewhere Status: Acute Plan Group B strep prophylaxis. Medical induction of labor. Spontaneous vaginal delivery is expected. She is an epidural candidate
--- NOTE | 2025-02-21 08:42 | LDADM ---
This patient, Radha Mcginnis, was admitted to Labor/Delivery/Recovery 104 on 02/21/25 at 06:16. Plans for labor, pain management and were discussed with patient. Patient/family oriented to hospital policies and general routines including ID bracelet, bed and alarms, visiting hours, pain management, procedures, bathroom and other care routines, personal items, smoking policy, room service/diet and guest tray routines, security routines, and visiting hours. Patient/Family are encouraged to report perceived risks to care and to ask questions if they do not understand what they are told or what they should do. See OBIX for further documentation.
[2025-02-21] MEDS: ONDANSETRON INJ 4 MG/2 ML VIAL IV PUSH ×2 (09:24→15:21)
[2025-02-21 09:29] LABS: Syphilis IgG/IgM Antibody Non-Reactive (Nonreactive)
[2025-02-21] MEDS: AMPICILLIN SODIUM 1 GM in SODIUM CHLORIDE 0.9% IV 50 ML 100 ML IVPB ×3 (10:58→19:18)
--- NOTE | 2025-02-21 12:00 | PM.OBPNLAB ---
Pain Control Date/time seen: 02/21/25 12:00 Pain control: tolerating well and epidural Pelvic Exam Dilation (cm): 2 Effacement (%): 75 station: -2 Amniotic membrane status: Leaking
--- NOTE | 2025-02-21 13:10 | P.PNAN_ITS ---
Anes - Initial Pre Proc Eval Procedure: labor epidural Date/Time: 02/21/25 13:10 Surgeon: Robert Plata MD Pre Op Diagnosis: labor pain Pre Op Diagnosis: IOL Patient Data Age: 19 Gender: F Height: 1.5 m Weight: 68.6 kg Last Vital Signs Temp 36.6 C 02/21/25 10:30 Pulse 80 02/21/25 13:01 BP 122/74 02/21/25 13:01 Pulse Ox 99 02/21/25 13:07 O2 Del Method Room Air 02/21/25 08:42 Allergies Allergy/AdvReac Type Severity Reaction Status Date / Time No Known Allergies Allergy Mild Verified 02/09/25 15:17 Home Medications ?Medication ?Instructions ?Recorded ?Confirmed ?Type vit no.95-ferrous 1 tablet PO DAILY 02/09/25 02/21/25 History fumarate 28 mg-folic acid 800 mcg tablet () Laboratory Tests 02/21/25 06:39 WBC 9.0 K/mm3 (4.5-10.0) RBC 3.49 L M/mm3 (4.2-5.4) Hgb 9.1 L g/dL (12.0-15.0) Hct 29.4 L % (37.0-47.0) MCV 84.2 fl (80-100) MCH 26.1 pg (26-34) MCHC 31.0 L g/dl (32-36) RDW 15.0 H % (11.5-14.5) Plt Count 221 k/mm3 (150-375) MPV 11.1 H fl (7.4-10.4) Immature Gran % (Auto) 0.7 H % (0-0.5) Neut % (Auto) 58.8 % (45.5-73.1) Lymph % (Auto) 31.0 % (18.3-44.2) [place] % (Auto) 8.2 % (2.6-8.5) Eos % (Auto) 1.1 % (0-4.4) Baso % (Auto) 0.2 % (0.2-1.2) Lymph # (Auto) 2.80 K/mm3 (0.9-3.2) [place] # (Auto) 0.7 H K/mm3 (0.1-0.6) Eos # (Auto) 0.1 K/mm3 (0-0.3) Baso # (Auto) 0.0 K/mm3 (0.0-0.1) Abs Immat Gran (auto) 0.06 H K/mm3 (0.00-0.031) Absolute Neuts (auto) 5.3 K/mm3 (1.3-6.7) Absolute Nucleated RBC 0.000 K/mm3 (0.0-0.012) Nucleated RBC % 0.0 % (0.0-0.2) Syphilis IgG/IgM Ab Non-reactive (Nonreactive) Blood Type A Positive Antibody Screen Negative Patient hx anesthesia problems: none Family hx anesthesia problems: none Results Review: All pre-operative results and documents have been reviewed as part of the pre- operative evaluation. [facility] Family History Family History Sibling Epilepsy Social History Social History Smoking status: Never smoker Substance use: never Lack of Transportation: No Lack of Food: Never True Current Housing: I Do Not Have Housing Concerned About Future Housing: No Difficulty Paying Gas/Electric Bills: No Difficulty Paying for Meds: No Currently Unemployed: YES Education: High School Diploma/GED Difficulty w/ Childcare or Family Care: No Spiritual care concerns: No Anes - Eval Final PreProcedure Day of Procedure 02/21/25 13:10 Patient weight: obese ASA classification: II Anesthetic plan: proceed Anesthesia type and monitoring: regional epidural and standard monitoring Results Review: All pre-operative results and documents have been reviewed as part of the pre- operative evaluation. Informed Consent: The patient's anesthetic plan and its attendant risks and benefits were discussed with the patient/family/POA. Questions were solicited and answers provided to the satisfaction of the patient/family/POA.
--- NOTE | 2025-02-21 15:59 | PM.OBPNLAB ---
Pain Control Date/time seen: 02/21/25 15:59 Pain control: tolerating well and epidural Pelvic Exam Dilation (cm): 4 Effacement (%): 75 station: -2 Amniotic membrane status: Leaking Contractions Monitor mode: Internal
--- NOTE | 2025-02-21 21:30 | PM.OBPNLAB ---
Pain Control Date/time seen: 02/21/25 21:30 Pain control: tolerating well and epidural Pelvic Exam Dilation (cm): 10 Effacement (%): 100 station: +2 Amniotic membrane status: Leaking Contractions Monitor mode: Internal
[2025-02-21] MEDS: OXYTOCIN 30 UNITS/NS 500 ML 30 UNITS/500 ML BAG 999 UNITS IV CONT (22:01)
--- NOTE | 2025-02-21 22:08 | PM.OBPRVD ---
OB - Vaginal Delivery Note Procedure Delivery date: 02/21/25 Events: Elective Induction of Labor Induction method: AROM Delivery augmentation: Pitocin Delivery monitor: External FHT and Internal Uterine Route of delivery: Episiotomy description: None Laceration Description: None Specimen: No Quantitative Blood Loss (ml): 62 Anesthesia type: Epidural Disposition: Floor Complications: No immediate complications Narrative: Patient was admitted for induction of labor on the early a.m. of 02/21/2025. Artificial rupture membranes performed she got to completely dilated which complete she pushed delivered in the SHERLYN position. Anterior posterior shoulder delivered spontaneously. Cord clamped warmer given Apgars of 8 [id number] 5minutes. Cord blood was drawn. Placenta delivered intact spontaneously. Twenty of Pitocin placed IV to help firm the uterus. Vagina was inspected no tears or lacerations were noted blood loss was 62cc. All sponge, needle, instrument counts were correct. There were no immediate complications noted she did receive 4 doses of ampicillin prophylactically for group B strep Baby Date of : 02/21/25 Time of : 22:00 Gestational Age by Date: 40 gender: Male presentation: vertex position: Right Occiput Anterior Placenta delivery description: Spontaneous Cord Vessel Description: 3 Vessels score one minute: 8 score five minutes: 9 Narrative: And ampicillin x4 for group B strep
--- NOTE | 2025-02-21 22:11 | PM.DS ---
DS: Admitting Diagnosis Discharge Date 02/27/2025 Admitting Diagnosis Term /positive group B strep DS: Discharge Diagnosis Discharge Diagnosis (1) Positive testing for group B Streptococcus: Code(s): B95.1 - Streptococcus, group B, as the cause of diseases classified elsewhere Status: Acute (2) Term : Code(s): Z34.90 - Encounter for supervision of normal , unspecified, unspecified trimester Status: Acute DS: Summary Hospital Course Reason for hospitalization: Induction of labor at term Hospital Course: Patient underwent successful induction of labor at term at 40 weeks gestation with group B strep prophylaxis. Her hospital course unremarkable. She remained afebrile. She was up, voiding without difficulty, eating regular diet, ambulating, generally without complaints Time Spent with Patient Time attestation: Total time spent providing and/or coordinating discharge services: Exam Const: General: cooperative, healthy appearing, comfortable and average body habitus Orientation/consciousness: oriented to person, oriented to place and oriented to time HENMT: Head: normal to inspection Resp: Effort & Inspection: normal respiratory effort Cardio: Rate: regular rate Rhythm: regular rhythm Heart sounds: S1 normal heart sound present and S2 normal heart sound present GI: Inspection: normal to inspection (Gravid soft uterus) : External Female Exam: normal external appearance Speculum Exam - Vagina: normal appearance of the vagina Speculum Exam - Cervix: normal appearance of the cervix (Cervix 2/75/-1. AROM clear. FHT is reassuring) DS: Data Data Completed and Pending Labs on day of discharge: Labs from last 24 hours 02/21/25 06:39 WBC 9.0 RBC 3.49 L Hgb 9.1 L Hct 29.4 L MCV 84.2 MCH 26.1 MCHC 31.0 L RDW 15.0 H Plt Count 221 MPV 11.1 H Immature Gran % (Auto) 0.7 H Neut % (Auto) 58.8 Lymph % (Auto) 31.0 [place] % (Auto) 8.2 Eos % (Auto) 1.1 Baso % (Auto) 0.2 Lymph # (Auto) 2.80 [place] # (Auto) 0.7 H Eos # (Auto) 0.1 Baso # (Auto) 0.0 Abs Immat Gran (auto) 0.06 H Absolute Neuts (auto) 5.3 Absolute Nucleated RBC 0.000 Nucleated RBC % 0.0 Syphilis IgG/IgM Ab Non-reactive Blood Type A Positive Antibody Screen Negative Discharge Plan Discharge Attending physician on discharge: Robert Agarwal Consulting providers: Chidi Tierney; Amy Nayak Discharging Clinician: Robert Agarwal Anticipated Discharge Date/Time: 02/23/25 12:46 Patient Disposition: Home Activity: may shower, no straining and pelvic rest Diet: heart healthy Wound Care Instructions: follow printed instructions Discharge Instructions: Education: Mom and Baby Guide Given to: Mother Follow-Up: Call your delivering provider's office for an appointment to be seen in: Call OB for follow up Mom and baby should come to the [facility] for the follow-up appointment. Appointment Date/Time: February 25, 2025 at 10:00 am What to expect at your follow-up visit: Blood Pressure Check Physical Assessment Call [phone] if you are unable to keep your appointment time. BREAST CARE: * Wear a snug supportive bra. * For engorgement discomfort: Breast Feeding: * Apply warm moist washcloths * Express milk as needed to relieve engorgement * Wear loose clothing Bottle Feeding: * May apply ice packs * For sore nipples: * Identify correct latch-on * Apply warm moist washcloths before and after nursing * Air dry nipples after nursing * May apply Lansinoh cream to nipples PERINEAL CARE: * Until bleeding stops, use your lida bottle after urinating * Change your pad frequently throughout the day * You may take sitz baths several times a day (fill your bathtub with warm water and soak for 20 minutes.) Do NOT bathe in the water * No tub baths until seen by your physician - You may shower ACTIVITY: * Rest as much as possible. * Do not exercise or lift anything heavier than your baby (such as laundry or other children.) * Avoid stairs or driving as much as possible. * Do not put anything into the vagina. No douching, tampons, or sexual activity until seen by physician. NOTIFY PHYSICIAN IF YOU HAVE ANY QUESTIONS OR IF ANY OF THE FOLLOWING SYMPTOMS OCCUR: * If your perineum becomes red, swollen, or more painful than what you have experienced in the hospital. * If your vaginal bleeding becomes foul smelling. * If your vaginal bleeding becomes more heavy than a period or if your bleeding changes from pink to bright red. However, you may pass an occasional walnut-sized clot once or twice for the first week . * If you experience a sharp, shooting pain in you calves. * If you discover a hard, reddened area on your breast or if you experience flu-like symptoms. DIET: * Eat regular, well-balanced meals. * Drink plenty of fluids daily. If , drink to thirst. Patient Instructions: Antibiotic Form Patient Language: Welsh Stand Alone Forms: General Discharge Information Follow-up/Referrals: Robert Agarwal MD [Physician, DEPENDENCY DIRECTOR] Discharge Medications: New polysaccharide iron complex 150 mg iron Capsule 150 mg PO BIDWM Qty: 60 1RF Continued PNV no.95-ferrous fumarate-FA [] 28 mg iron- 800 mcg tablet 1 tablet PO DAILY Date of admission: 02/21/25 06:16 Primary Care Provider: PHYSICIAN,SCHOOL ADMINISTRATOR Admitting Provider: Robert Agarwal Attending physician on admission: Annabella Prieto Condition: Stable
[2025-02-21] MEDS: OXYTOCIN 30 UNITS/NS 500 ML 30 UNITS/500 ML BAG 125 UNITS IV CONT (22:20)
[2025-02-21] MEDS: METHYLERGONOVINE MALEATE 0.2 MG/ML VIAL IM (23:28)
[2025-02-22] VITALS (7 sets, daily range): BP systolic 100–124; BP diastolic 60–85; PULSE 68–86; RESP 16–18; TEMP 36.7–37.3; O2SAT 98–99
[2025-02-22] MEDS: IBUPROFEN 600 MG TABLET PO ×3 (00:23→15:26)
--- NOTE | 2025-02-22 00:47 | OBPPTRN ---
Patient transferred to post room #282 via wheelchair. Support person present. Oriented to unit, room, information board, rooming in, admission packet and security measures. Patient verbalizes understanding.
[2025-02-22 04:59] LABS: Hematocrit 27.8 % (37.0-47.0); Hemoglobin 8.6 g/dL (12.0-15.0)
[2025-02-22] MEDS: DOCUSATE SODIUM 100 MG CAPSULE PO ×2 (07:09→15:26)
--- NOTE | 2025-02-22 07:12 | PM.OBPNVD ---
OB - PN: Subj Subjective Date/time seen: 02/22/25 07:12 Interval history: The patient is perineum is quite swollen but no hematoma noted Patient comments: no complaints and pain well controlled [place] baby status: doing well OB - PN: Obj Data Labs 02/22/25 04:35 Labs: Laboratory Results - last 24 hr 02/21/25 02/22/25 06:39 04:35 Hgb 8.6 L Hct 27.8 L Syphilis IgG/IgM Ab Non-reactive Blood Type A Positive Antibody Screen Negative OB - PN A/P Assessment and Plan (1) Term : Code(s): Z34.90 - Encounter for supervision of normal , unspecified, unspecified trimester Status: Acute (2) Positive testing for group B Streptococcus: Code(s): B95.1 - Streptococcus, group B, as the cause of diseases classified elsewhere Status: Acute Plan Routine care Time Spent With Patient Time: Total time spent is greater than 50% in coordination of care (as documented) at patient's floor/unit and/or counseling patient: Review of Systems Review of Systems: All systems reviewed & are unremarkable except as noted in HPI and below Exam Const: General: cooperative, healthy appearing, comfortable and average body habitus Orientation/consciousness: oriented to person, oriented to place and oriented to time HENMT: Head: normal to inspection Resp: Effort & Inspection: normal respiratory effort Cardio: Rate: regular rate Rhythm: regular rhythm Heart sounds: S1 normal heart sound present and S2 normal heart sound present GI: Inspection: normal to inspection (Gravid soft uterus) : External Female Exam: normal external appearance Speculum Exam - Vagina: normal appearance of the vagina Speculum Exam - Cervix: normal appearance of the cervix (Cervix 2/75/-1. AROM clear. FHT is reassuring)
[2025-02-22] MEDS: BENZOCAINE 20% AER SPR (*SP) 56 GM CAN 1 SPRAY TOPICAL (07:13)
[2025-02-22] MEDS: WITCH HAZEL 40 PADS 1 PAD TOPICAL (07:14)
--- NOTE | 2025-02-22 09:28 | WPDANESPN ---
Anes - Prog Note Post-Op Date/Time: 02/22/25 09:28 Cardiovascular status: normal Respiratory status: normal Airway patency: baseline Mental status: baseline Post-Op hydration status: normal Vital Signs: Last Vital Signs Temp 37.3 C 02/22/25 07:20 Pulse 68 02/22/25 07:20 Resp 16 02/22/25 07:20 BP 100/68 02/22/25 07:20 Pulse Ox 98 02/22/25 07:20 O2 Del Method Room Air 02/22/25 01:00 Pain Score (VAS): 2 mild back pain dull achy nature. no tingling or parasthesias. all function to baseline. I/O: Intake & Output 02/21/25 02/22/25 02/22/25 23:59 07:59 15:59 Intake Total 1000 Balance 1000 Laboratory Tests 02/22/25 04:35 02/21/25 02/22/25 06:39 04:35 Hgb 8.6 L Hct 27.8 L Syphilis IgG/IgM Ab Non-reactive Post-procedural complaints: none Patient Feedback: Patient satisfied with anesthetic care.
--- NOTE | 2025-02-22 09:39 | PCCCNOTE ---
vd notification that pt. answered yes to substance use during . Met with pt. and APRIL Bose. Pt's mother and grandmother also at bedside. Pt. reports she and baby will be living with FOB in [place]. Pt. reports her mother and grandmother will be helpful if needed. Pt. reports has baby supplies, and already establish with [facility]. Pt. reports looking into WIC services. Pt. denies prior DCFS involvement. Pt. reports used [facility] during due to nausea and pain. resources provided. REYNALDO Low aware of visit.
[2025-02-22] MEDS: HYDROcodone/acetaminophen (*CRX) 5-325 MG TABLET 1 TAB PO (11:30)
[2025-02-23 08:15] VITALS: BP 124/88; PULSE 86; RESP 14; TEMP 36.8; O2SAT 98
--- NOTE | 2025-02-23 10:06 | P.PNOB_ITS ---
OB - PN: Subj Subjective Date/time seen: 02/23/25 10:06 Patient comments: no complaints and pain well controlled baby status: doing well OB - PN: Obj Data Labs 02/22/25 04:35 OB - PN A/P Plan day: 2 Plan: routine care, discharge home, follow up 6 weeks and other (anemia-plan iron BID x 8 wk) Time Spent With Patient Time: Total time spent is greater than 50% in coordination of care (as documented) at patient's floor/unit and/or counseling patient: Exam 2 : Bimanual exam- vagina & uterus: other (Uterus firm, nt @U)
[2025-02-23] MEDS: DOCUSATE SODIUM 100 MG CAPSULE PO (10:20)
[2025-02-25 10:37] VITALS: BP 118/74; PULSE 86; RESP 18; TEMP 36.6; O2SAT 100
== END 2025-02-23 15:37 | disposition home or self-care (01) | DRG 807 ==
LOC: ANHLDR 22:13 → ANHOB2 02-23 12:47 → ANHLDR 02-26 10:40
PROVIDERS: Admitting Provider Obstetrics & Gynecology; Visit Provider Obstetrics & Gynecology Gynecology
DX: O99.824 Streptococcus B carrier state complicating childbirth (principal); Z37.0 Single live birth; Z3A.40 40 weeks gestation of pregnancy; O77.0 Labor and delivery complicated by meconium in amniotic fluid
CPT/HCPCS: 36415; 85014; 85018; 85025; 86593; 86850; 86900; 86901; A9270; J0290; J2210; J2405; J2590; J2795; J3010; J7120

== ENCOUNTER 2025-04-24 20:45 | Emergency (ER) | payer MEDICAID, SELFPAY ==
[2025-04-24 20:54] VITALS: BP 94/50; PULSE 63; RESP 16; TEMP 37; O2SAT 100
== END 2025-04-24 23:13 | disposition left against medical advice (07) ==
DX: R10.10 Upper abdominal pain, unspecified (principal)
CPT/HCPCS: 99199